=== PATIENT | male | born 1945 | race Caucasian/White ===

== ENCOUNTER → 2021-08-08 | Outpatient (CLI) | payer MEDICARE, BC ==
--- NOTE | 2021-08-08 11:40 | P.PAINPG ---
PQRS Measure Charge Sheet Comment: HISTORY OF PRESENT ILLNESS: 76 yr old male with at side as a referral from Dr. Black presents today with severe and chronic lower back pain secondary to spinal stenosis, DDD and facet arthropathy for evaluation. Patient states his back pain is 5 out of 10 in intensity, sore, achy in the mid to lower aspects of his lumbar spine with radiation of pain toward the right hip. Patient is scheduled to have hip replacement surgery in the upcoming months. Pain is provoked with weightbearing activity. Pain is relieved with medications (baclofen, Mobic), topicals, alternating ice and heat which does not help, physical therapy completed in February 2021, use of a wheelchair and walker for ambulation, sitting, repositioning and rest. PMH: OA, HTN, Hyperlipidemia, Seizure Disorder, MDD PSH: Tonsillectomy, Hernia Repair SH: negative x 3. and lives with spouse FH: Non contributory All: NKDA Meds: See list REVIEW OF ORGAN SYSTEMS: CONSTITUTIONAL: No fevers or chills. No recent weight loss. HEENT: No visual acuity loss, eye pain, difficulties with hearing. No nosebleeds. No difficulty swallowing. RESPIRATORY: Denies any troubles with breathing or dyspnea on exertion. CARDIOVASCULAR: Denies any chest pain, palpitations, or recent heart attacks. GASTROINTESTINAL: Denies fatty food intolerance. Has change in bowel habits and gas bloat. GENITOURINARY: Denies any blood in urine. Has increased urinary frequency. NEUROLOGICAL: + numbness and tingling along the distal extremities. No seizure disorders or headaches. MUSCULOSKELETAL: + back pain SKIN: No skin cancer. No rash. PSYCHIATRIC: Denies current depression or suicidal thoughts. ENDOCRINE: Denies current thyroid disorders. Denies any blood sugar glucose intolerance. HEME/LYMPHATIC: Denies any lumps and bumps around the neck. History of deep venous thrombosis. ALLERGY/IMMUNOLOGY: No immunoglobulin therapy. No immune deficiencies. BREAST: Denies current breast lumps, pain or nipple discharge. Physical Examinations : Constitutional : Cooperative , not in acute distress . HEENT: Neck supple. No Lymphadenopathy. Normal thyroid size . Eyes no ptosis , no icterus, no photophobia . Hearing intact. Normal oropharynx. No Thrush. Respiratory : Chest clear to auscultations bilaterally. No wheezing. No rhonchi. Cardiovascular : Regular rate and rhythm , S1 / S2. No S3 . No S4. Gastrointestinal : Abdomen soft. No tenderness. Bowel sounds x 4. No organomegaly . Genitourinary : Deferred. Neurologic : Cranial nerve II to XII intact. No focal neurological deficits. Psychiatric : alert & oriented x 3. Matching mood & appropriate affect. Judgment & insight intact. Lymphatic No Lymphadenopathy. Musculoskeletal : Cervical Spine Motor strength in the deltoid and biceps: Normal right side. Normal Left side Motor strength biceps and the wrist ext ensors: Normal right side . Normal left side Motor strength in the triceps muscle: Normal right side. Normal left side Deep tendon reflexes: Normal at the biceps. Normal at Brachioradialis. Normal at triceps Cervical facet loading test: positive bilaterally Spurling test: positive bilaterally Neck distraction test: positive bilaterally Suzy sign: positive bilaterally Lumbar spine Motor strength lower extremities ,thigh and legs 5/5 Right side , 5/5 Left side Deep tendon reflexes : Normal Knee Jerk. Normal Ankle Jerk Vertebral body tenderness over L1, L2 Lumbar facet Loading Test: positive Right / positive Left Range of motion of the lumbar spine Flexion 30 degrees, extension 10 degrees Straight Leg Raise test: Left/ Right positive at degree Dylan test: positive right / positive left. Severe tenderness over the Sacroiliac joint on the Right / Left sides Gaenslen test: positive bilaterally Seated flexion test: positive on the R Sacral spine : Severe tenderness over the Sacroiliac joint: right side / left side Range of motion: Flexion of the lumbar spine <60 degrees Range of motion: Extension of the lumbar spine <20 degrees Gaenslen's Test positive Maximiliano's Test positive Dylan test: positive right side / left side Thigh Thrust Test Sacral Thrust Test Imaging: MRI without contrast of the lumbar spine from 12/25/20 reviewed Assessment/ Plan : Lumbar DDD, lumbar stenosis, lumbar facet arthropathy Recommendation of LESI L1-L2. May need a series of injections, up to 3 within a 6 month timeframe, for optimal pain relief. Risks, benefits of procedure discussed and patient verbalized understanding. Denies medical history of diab etes. Admits to Plavix and aspirin 81 mg use. Protocol for discontinuation/continuation of medications pancho procedure discussed. All questions answered. I have spent greater than 50 minutes on patient care today. Dr Ramos was available by phone for the evaluation of this patient. The time was used to review the medical records including relevant urine studies and Prescription history (MAPs), review of the available imaging, evaluation and examination of the patient, coordination of care with the medical staff and if applicable referring physicians, as well as creation of the medical record PQRS Narrative: Pain Intensity [Lower Back] 7 Scale Used Numeric (1 - 10) Hx Alcohol Use (MH) No Home Medications: Ambulatory Orders ARIPiprazole [Abilify] 5 mg PO DAILY 08/06/21 Atorvastatin [Lipitor] 40 mg PO HS 08/06/21 Baclofen 10 mg PO TID 08/06/21 Clopidogrel [Plavix] 75 mg PO HS 08/06/21 FLUoxetine HCL [PROzac] 20 mg PO BID 08/06/21 Lisinopril-Hctz 20-25 mg [Zestoretic 20-25] 1 tab PO DAILY 08/06/21 Meloxicam [Mobic] 15 mg PO HS 08/06/21 busPIRone HCL 15 mg PO BID 08/06/21 levETIRAcetam [Keppra] 750 mg PO Q12HR 08/06/21 Controlled Substance Measures - Controlled Substance Measures Is patient prescribed a controlled substance at discharge?: No
[2021-08-08 12:47] VITALS: BP 102/68; PULSE 84; RESP 18; TEMP 98.1
== END ==
LOC: PNWHC3 10:41
PROVIDERS: ATTEND Specialist
DX: M51.36 Other intervertebral disc degeneration, lumbar region (principal); M51.26 Other intervertebral disc displacement, lumbar region; M48.062 Spinal stenosis, lumbar region with neurogenic claudication; M47.816 Spondylosis without myelopathy or radiculopathy, lumbar region; M19.90 Unspecified osteoarthritis, unspecified site; I10 Essential (primary) hypertension; E78.5 Hyperlipidemia, unspecified; G40.909 Epilepsy, unspecified, not intractable, without status epilepticus
CPT/HCPCS: 99211

== ENCOUNTER 2021-12-04 09:18 | Observation (INO) | payer MEDICARE, BC ==
[2021-12-04] MEDS ORDERED: SODIUM CHLORIDE 0.9% 1,000 ML IV STA ×2 (09:45)
--- NOTE | 2021-12-04 09:56 | ED ---
General Adult HPI - General Chief complaint: Recheck/Abnormal Lab/Rx Stated complaint: hypotension Time Seen by Provider: 12/04/21 09:34 Source: patient, family, RN notes reviewed Mode of arrival: wheelchair Limitations: no limitations - History of Present Illness Initial comments: 76-year-old male with multiple medical problems presenting for evaluation of hypotension. Patient was scheduled for right hip replacement today. He was in preop and noted to have a low blood pressure. He states that he was nothing by mouth since 11 PM last night. He had taken his oral antihypertensive medications this morning around 4 AM which included metoprolol, lisinopril, and hydrochlorothiazide. Patient himself has no complaints. Patient had previous CVA but is able to answer questions. He does not eat anything by mouth but has a PEG tube for feeding. No chest pain. No abdominal pain. No vomiting or diarrhea. No fever. - Related Data Home Medications Medication Instructions Recorded Confirmed ARIPiprazole [Abilify] 5 mg PEG/G-TUBE DAILY 08/06/21 12/04/21 Atorvastatin [Lipitor] 40 mg PEG/G-TUBE HS 08/06/21 12/04/21 Baclofen 10 mg PEG/G-TUBE Q8H PRN 08/06/21 11/29/21 Clopidogrel [Plavix] 75 mg PEG/G-TUBE HS 08/06/21 11/29/21 FLUoxetine HCL [PROzac] 20 mg PEG/G-TUBE BID 08/06/21 12/04/21 Lisinopril-Hctz 20-25 mg 1 tab PEG/G-TUBE DAILY 08/06/21 12/04/21 [Zestoretic 20-25] Meloxicam [Mobic] 15 mg PEG/G-TUBE DAILY 08/06/21 11/29/21 busPIRone HCL 15 mg PEG/G-TUBE BID 08/06/21 12/04/21 Acetaminophen [Acetaminophen Oral 20 ml PEG/G-TUBE Q4H PRN 10/04/21 11/29/21 Soln] Aspirin 81 mg PEG/G-TUBE DAILY 10/04/21 11/29/21 Carbidopa-Levodopa 25-100 mg 1 each PEG/G-TUBE QID 10/04/21 12/04/21 [Sinemet 25-100] Diclofenac Sodium Gel [Voltaren 2 gm TOPICAL TID PRN 10/04/21 11/29/21 Gel] Docusate Oral Soln [Colace Oral 10 ml PEG/G-TUBE DIRECTED PRN 10/04/21 12/04/21 Soln] Doxazosin [Cardura] 2 mg PEG/G-TUBE DAILY 10/04/21 12/04/21 Famotidine [Pepcid] 20 mg PEG/G-TUBE DAILY 10/04/21 12/04/21 Loratadine [Claritin] 10 mg PEG/G-TUBE DAILY 10/04/21 12/04/21 Magnesium Hydroxide [Milk of 30 ml PEG/G-TUBE Q48H PRN 10/04/21 11/29/21 Magnesia] Metoclopramide [Reglan] 5 mg PEG/G-TUBE QID 10/04/21 12/04/21 Ondansetron [Zofran] 4 mg PEG/G-TUBE Q6H PRN 10/04/21 11/29/21 Oxybutynin Chloride 5 mg PEG/G-TUBE BID 10/04/21 12/04/21 levETIRAcetam [Keppra Oral 7.5 ml PEG/G-TUBE BID 10/04/21 12/04/21 Solution] Metoprolol Tartrate 25 mg PO BID 11/29/21 12/04/21 Saliva Stimulant Comb. No.3 1 spray MUCOUS MEM TID PRN 11/29/21 12/04/21 [Biotene Moisturizing Mouth] bisacodyL [Dulcolax] 10 mg RECTAL Q72H PRN 11/29/21 11/29/21 Allergies Allergy/AdvReac Type Severity Reaction Status Date / Time No Known Allergies Allergy Verified 12/04/21 11:04 Review of Systems ROS Statement: Those systems with pertinent positive or pertinent negative responses have been documented in the HPI. ROS Other: All systems not noted in ROS Statement are negative. Past Medical History Past Medical History: CVA/TIA, Hyperlipidemia, Hypertension, Prostate Disorder, Sleep Apnea/CPAP/BIPAP Additional Past Medical History / Comment(s): enlarged prostate. 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 parkinsons. stroke 05/15 after hernia surgery, peg tube for feedings and meds. swallowing issues nothing by mouth. uses wheelchair pivots with one assist ( [facility]) no skin issues per [facility] History of Any Multi-Drug Resistant Organisms: None Reported Past Surgical History: Hernia Repair, Tonsillectomy Additional Past Surgical History / Comment(s): 05/15 rt inquinal hernia repair Past Anesthesia/Blood Transfusion Reactions: No Reported Reaction Additional Past Anesthesia/Blood Transfusion Reaction / Comment(s): no blood hx Past Psychological History: Depression Smoking Status: Never smoker Past Alcohol Use History: None Reported Past Drug Use History: None Reported - Past Family History Father Family Medical History: Coronary Artery Disease (CAD) Mother Family Medical History: No Reported History General Exam Limitations: no limitations General appearance: alert, in no apparent distress Head exam: Present: atraumatic, normocephalic Eye exam: Present: normal appearance, PERRL ENT exam: Present: mucous membranes dry Neck exam: Present: normal inspection. Absent: tenderness, meningismus Respiratory exam: Present: normal lung sounds bilaterally. Absent: respiratory distress, wheezes Cardiovascular Exam: Present: regular rate, normal rhythm GI/Abdominal exam: Present: soft, other (PEG tube). Absent: distended, tenderness Extremities exam: Present: normal inspection, normal capillary refill Neurological exam: Present: alert, oriented X3 Psychiatric exam: Present: normal affect, normal mood Skin exam: Present: warm, dry, intact Course Vital Signs 12/04/21 12/04/21 12/04/21 09:26 09:34 10:00 Temperature 97.5 F L Pulse Rate 57 L 58 L 73 Respiratory 15 15 16 Rate Blood Pressure 99/47 84/39 94/49 O2 Sat by Pulse 99 99 100 Oximetry 12/04/21 10:30 Temperature Pulse Rate 59 L Respiratory 15 Rate Blood Pressure 98/48 O2 Sat by Pulse 100 Oximetry EKG Findings - EKG Comments: EKG Findings:: EKG: Sinus bradycardia rate of 58, DE interval 178, QRS duration 81, QTC 414, no ST segment changes. Medical Decision Making - Medical Decision Making 76-year-old male presenting from preop for evaluation of hypotension. Patient does not have any complaints. He did take his antihypertensive medication this morning. No fever. No abdominal pain. No vomiting or diarrhea. No chest pain. X-ray clear, EKG sinus. He has a mild leukocytosis of 12.7, mild lactic acid 2.5. He does have signs of urinary tract infection. He's given IV fluids and IV antibiotics. Urine culture is pending. He will be admitted to internal medicine with orthopedics on consult. - Lab Data Result diagrams: 12/04/21 10:07 12/04/21 10:07 Lab Results 12/04/21 12/04/21 12/04/21 Range/Units 10:07 10:07 10:07 WBC 12.7 H (3.8-10.6) k/uL RBC 3.83 L (4.30-5.90) m/uL Hgb 12.0 L (13.0-17.5) gm/dL Hct 35.8 L (39.0-53.0) % MCV 93.7 (80.0-100.0) fL MCH 31.3 (25.0-35.0) pg MCHC 33.4 (31.0-37.0) g/dL RDW 12.8 (11.5-15.5) % Plt Count 272 (150-450) k/uL MPV 11.0 Neutrophils % 77 % Lymphocytes % 10 % Monocytes % 7 % Eosinophils % 5 % Basophils % 1 % Neutrophils # 9.7 H (1.3-7.7) k/uL Lymphocytes # 1.2 (1.0-4.8) k/uL Monocytes # 0.8 (0-1.0) k/uL Eosinophils # 0.6 (0-0.7) k/uL Basophils # 0.1 (0-0.2) k/uL PT 10.3 (9.0-12.0) sec INR 0.9 (<1.2) APTT 21.7 L (22.0-30.0) sec Sodium (137-145) mmol/L Potassium (3.5-5.1) mmol/L Chloride (98-107) mmol/L Carbon Dioxide (22-30) mmol/L Anion Gap mmol/L BUN (9-20) mg/dL Creatinine (0.66-1.25) mg/dL Est GFR (CKD-EPI)AfAm (>60 ml/min/1.73 sqM) Est GFR (CKD-EPI)NonAf (>60 ml/min/1.73 sqM) Glucose (74-99) mg/dL Plasma Lactic Acid Kvng (0.7-2.0) mmol/L Calcium (8.4-10.2) mg/dL Magnesium (1.6-2.3) mg/dL Total Bilirubin (0.2-1.3) mg/dL AST (17-59) U/L ALT (4-49) U/L Alkaline Phosphatase (38-126) U/L Total Protein (6.3-8.2) g/dL Albumin (3.5-5.0) g/dL Urine Color Yellow Urine Appearance Cloudy (Clear) Urine pH 7.0 (5.0-8.0) Ur Specific [place] 1.024 (1.001-1.035) Urine Protein 1+ H (Negative) Urine Glucose (UA) Negative (Negative) Urine Ketones Trace H (Negative) Urine Blood Negative (Negative) Urine Nitrite Negative (Negative) Urine Bilirubin Negative (Negative) Urine Urobilinogen 2.0 (<2.0) mg/dL Ur Leukocyte Esterase Large H (Negative) Urine RBC 8 H (0-5) /hpf Urine WBC 131 H (0-5) /hpf Urine WBC Clumps Many H (None) /hpf Amorphous Sediment Rare H (None) /hpf Urine Bacteria Few H (None) /hpf Urine Mucus Many H (None) /hpf 12/04/21 12/04/21 Range/Units 10:07 10:07 WBC (3.8-10.6) k/uL RBC (4.30-5.90) m/uL Hgb (13.0-17.5) gm/dL Hct (39.0-53.0) % MCV (80.0-100.0) fL MCH (25.0-35.0) pg MCHC (31.0-37.0) g/dL RDW (11.5-15.5) % Plt Count (150-450) k/uL MPV Neutrophils % % Lymphocytes % % Monocytes % % Eosinophils % % Basophils % % Neutrophils # (1.3-7.7) k/uL Lymphocytes # (1.0-4.8) k/uL Monocytes # (0-1.0) k/uL Eosinophils # (0-0.7) k/uL Basophils # (0-0.2) k/uL PT (9.0-12.0) sec INR (<1.2) APTT (22.0-30.0) sec Sodium 134 L (137-145) mmol/L Potassium 4.6 (3.5-5.1) mmol/L Chloride 98 (98-107) mmol/L Carbon Dioxide 27 (22-30) mmol/L Anion Gap 9 mmol/L BUN 37 H (9-20) mg/dL Creatinine 0.94 (0.66-1.25) mg/dL Est GFR (CKD-EPI)AfAm 90 (>60 ml/min/1.73 sqM) Est GFR (CKD-EPI)NonAf 78 (>60 ml/min/1.73 sqM) Glucose 89 (74-99) mg/dL Plasma Lactic Acid Kvng 2.5 H* (0.7-2.0) mmol/L Calcium 9.4 (8.4-10.2) mg/dL Magnesium 2.2 (1.6-2.3) mg/dL Total Bilirubin 0.6 (0.2-1.3) mg/dL AST 19 (17-59) U/L ALT 9 (4-49) U/L Alkaline Phosphatase 91 (38-126) U/L Total Protein 5.9 L (6.3-8.2) g/dL Albumin 3.4 L (3.5-5.0) g/dL Urine Color Urine Appearance (Clear) Urine pH (5.0-8.0) Ur Specific [place] (1.001-1.035) Urine Protein (Negative) Urine Glucose (UA) (Negative) Urine Ketones (Negative) Urine Blood (Negative) Urine Nitrite (Negative) Urine Bilirubin (Negative) Urine Urobilinogen (<2.0) mg/dL Ur Leukocyte Esterase (Negative) Urine RBC (0-5) /hpf Urine WBC (0-5) /hpf Urine WBC Clumps (None) /hpf Amorphous Sediment (None) /hpf Urine Bacteria (None) /hpf Urine Mucus (None) /hpf Disposition Clinical Impression: UTI (urinary tract infection), Hypotension Disposition: ADMITTED IP TO THIS HOSP Condition: Stable Is patient prescribed a controlled substance at d/c from ED?: No Referrals: Brennan Cuellar MD [Primary Care Provider] - 1-2 days Time of Disposition: 11:15
[2021-12-04 10:15] LABS: Basophils # (A) 0.1 k/uL (0-0.2); Basophils % (A) 1 %; Eosinophils # (A) 0.6 k/uL (0-0.7); Eosinophils % (A) 5 %; HCT 35.8 % (39.0-53.0); Lymphocytes # (A) 1.2 k/uL (1.0-4.8); Lymphocytes % (A) 10 %; MCH 31.3 pg (25.0-35.0); MCHC 33.4 g/dL (31.0-37.0); MCV 93.7 fL (80.0-100.0); Monocytes # (A) 0.8 k/uL (0-1.0); Monocytes % (A) 7 %; Neutrophils # (A) 9.7 k/uL (1.3-7.7); Neutrophils % (A) 77 %; Platelet Count 272 k/uL (150-450); RBC 3.83 m/uL (4.30-5.90); RDW 12.8 % (11.5-15.5); WBC 12.7 k/uL (3.8-10.6)
[2021-12-04 10:28] LABS: Amorphous Sediment,Urine Rare /hpf; Appearance,Urine Cloudy (Clear); Bacteria,Urine Few /hpf; Bilirubin,Urine Negative (Negative); Blood,Urine Negative (Negative); Color,Urine Yellow; Glucose,Urine (UA) Negative (Negative); Ketones,Urine Trace (Negative); Leukocyte Esterase,Urine Large (Negative); Mucus,Urine Many /hpf; Nitrite,Urine Negative (Negative); Protein,Urine 1+ (Negative); RBC,Urine 8 /hpf (0-5); Specific Gravity,Urine 1.024 (1.001-1.035); WBC,Urine 131 /hpf (0-5)
[2021-12-04 10:30] LABS: Albumin 3.4 g/dL (3.5-5.0); Calcium 9.4 mg/dL (8.4-10.2); Magnesium 2.2 mg/dL (1.6-2.3); Potassium 4.6 mmol/L (3.5-5.1); Total Bilirubin 0.6 mg/dL (0.2-1.3); Total Protein 5.9 g/dL (6.3-8.2)
--- NOTE | 2021-12-04 10:46 | XR ---
EXAMINATION TYPE: XR chest 2V DATE OF EXAM: 12/04/2021 COMPARISON: NONE HISTORY: Hypotension TECHNIQUE: Frontal and lateral views of the chest are obtained. FINDINGS: There is no focal air space opacity, pleural effusion, or pneumothorax seen. The cardiac silhouette size is within normal limits. There are overlying leads. There may be a spinal curvature, there is thoracic spondylosis. There are overlying artifacts. The osseous structures are intact. IMPRESSION: No acute cardiopulmonary process.
[2021-12-04 10:51] LABS: INR 0.9 (<1.2); Prothrombin Time 10.3 sec (9.0-12.0)
[2021-12-04] MEDS ORDERED: cefTRIAXone IN SWFI 1,000 MG/10 ML SYRINGE IVP STA (11:04)
[2021-12-04 11:09] LABS: Partial Thromboplastin Time 21.7 sec (22.0-30.0)
[2021-12-04] MEDS ORDERED: NALOXONE 0.4 MG/ML 1 ML VIAL IV PRN (11:12)
[2021-12-04] MEDS ORDERED: bisacodyL 10 MG SUPP RECTAL PRN (19:43)
[2021-12-04] MEDS ORDERED: ACETAMINOPHEN ORAL SUSP (PEDS) 3,840 MG/120 ML BOTTLE PEG/G-TUBE PRN (19:43)
[2021-12-04] MEDS ORDERED: MAGNESIUM HYDROXIDE 2,400 MG/10 ML CUP PEG/G-TUBE PRN (19:43)
[2021-12-04] MEDS ORDERED: [UNRECOGNIZED DRUG - REMARK] MUCOUS MEM PRN (19:43)
[2021-12-04] MEDS ORDERED: ONDANSETRON 4 MG TAB PEG/G-TUBE PRN (19:43)
[2021-12-04] MEDS ORDERED: BACLOFEN 10 MG TAB PEG/G-TUBE PRN (19:43)
[2021-12-04] MEDS: busPIRone HCl 5 MG TAB PEG/G-TUBE SCH (20:17)
[2021-12-04] MEDS: METOCLOPRAMIDE 5 MG TAB PEG/G-TUBE SCH (20:17)
[2021-12-04] MEDS: CARBIDOPA-LEVODOPA 25-100 MG 1 EACH TAB PEG/G-TUBE SCH (20:17)
[2021-12-04] MEDS: OXYBUTYNIN CHLORIDE 5 MG TAB PEG/G-TUBE SCH (20:17)
[2021-12-04] MEDS: FLUoxetine HCL 20 MG CAP PEG/G-TUBE SCH (20:17)
[2021-12-04] MEDS: METOPROLOL TARTRATE 25 MG TAB PEG/G-TUBE SCH (20:17)
[2021-12-04] MEDS: DOCUSATE ORAL SOLN 100 MG/10 ML CUP PEG/G-TUBE SCH (20:17)
[2021-12-04] MEDS: ATORVASTATIN 40 MG TAB PEG/G-TUBE SCH (20:17)
[2021-12-04] MEDS: levETIRAcetam ORAL SOLN 500 MG/5 ML CUP PEG/G-TUBE SCH (20:17)
--- NOTE | 2021-12-04 21:07 | P.HPIM ---
History of Present Illness H&P Date: 12/04/21 Chief Complaint: Hypotension Patient is a 76-year-old male with a known history of hypertension, hypertension, history of CVA, Parkinson's disease, medical debility currently [facility] resident and obstructive sleep apnea and other medical problems was initially was admitted to the hospital for elective hip surgery. While patient was in the preop unit he was noted to be hypotensive. Patient was nothing by mouth since 11 PM last night. Patient did take his oral antihypertensive medications this morning around 4 AM which includes metoprolol, lisinopril and hydrochlorothiazide. Otherwise patient denied any complaints of dizziness or lightheadedness. No fever no chills. No abdominal pain. No dysuria or hematuria. No cough or sputum production. Patient does have PEG tube feeding which he has been tolerating functioning well. No nausea vomiting or diarrhea. No abdominal pain. Laboratory data showed WBC 12.7 hemoglobin 12.0 and platelets 272 Sodium 134 potassium 4.6 chloride 98 bicarb is 27 BUN 37 and creatinine 0.94 Lactic acid 2.5 Urinalysis showed cloudy with 1+ protein and trace ketones large leukocyte esterase with elevated RBCs and WBCs Review of Systems Constitutional: Patient denies any fever or chills . No generalized weakness or weight loss. Abdomen: Patient denied nausea vomiting and diarrhea and abdominal pain. Cardiovascular: Patient denies any chest pain or short of breath no palpit ations. Respiratory: patient denied any cough is from production. No shortness of breath Neurologic: Patient denied any numbness or tingling headache. Musculoskeletal: Patient denies any complaints of joint swelling or deformity. Skin: Negative Psychiatric: Negative Endocrine: No heat or cold intolerance. No recent weight gain. Genitourinary: No dysuria or hematuria. All other 14 point ROS negative except the above Past Medical History Past Medical History: CVA/TIA, Hyperlipidemia, Hypertension, Prostate Disorder, Sleep Apnea/CPAP/BIPAP Additional Past Medical History / Comment(s): enlarged prostate. 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 parkinsons. stroke 05/15 after hernia surgery, peg tube for feedings and meds. swallowing issues nothing by mouth. uses wheelchair pivots with one assist ( [facility]) no skin issues per [facility] History of Any Multi-Drug Resistant Organisms: None Reported Past Surgical History: Hernia Repair, Tonsillectomy Additional Past Surgical History / Comment(s): 05/15 rt inquinal hernia repair Past Anesthesia/Blood Transfusion Reactions: No Reported Reaction Additional Past Anesthesia/Blood Transfusion Reaction / Comment(s): no blood hx Past Psychological History: Depression Smoking Status: Never smoker Past Alcohol Use History: None Reported Past Drug Use History: None Reported - Past Family History Father Family Medical History: Coronary Artery Disease (CAD) Mother Family Medical History: No Reported History Medications and Allergies Home Medications Medication Instructions Recorded Confirmed Type ARIPiprazole [Abilify] 5 mg PEG/G-TUBE DAILY 08/06/21 12/04/21 History Atorvastatin [Lipitor] 40 mg PEG/G-TUBE HS 08/06/21 12/04/21 History Baclofen 10 mg PEG/G-TUBE Q8H PRN 08/06/21 12/04/21 History Clopidogrel [Plavix] 75 mg PEG/G-TUBE DIRECTED 08/06/21 12/04/21 History FLUoxetine HCL [PROzac] 20 mg PEG/G-TUBE BID 08/06/21 12/04/21 History Meloxicam [Mobic] 15 mg PEG/G-TUBE DIRECTED 08/06/21 12/04/21 History busPIRone HCL 15 mg PEG/G-TUBE BID 08/06/21 12/04/21 History Acetaminophen [Acetaminophen Oral 20 ml PEG/G-TUBE Q4H PRN 10/04/21 12/04/21 History Soln] Aspirin 81 mg PEG/G-TUBE DIRECTED 10/04/21 12/04/21 History Carbidopa-Levodopa 25-100 mg 1 tab PEG/G-TUBE QID 10/04/21 12/04/21 History [Sinemet 25-100] Docusate Oral Soln [Colace Oral 10 ml PEG/G-TUBE HS 10/04/21 12/04/21 History Soln] Doxazosin [Cardura] 2 mg PEG/G-TUBE DAILY 10/04/21 12/04/21 History Famotidine [Pepcid] 20 mg PEG/G-TUBE DAILY 10/04/21 12/04/21 History Loratadine [Claritin] 10 mg PEG/G-TUBE DAILY 10/04/21 12/04/21 History Magnesium Hydroxide [Milk of 30 ml PEG/G-TUBE Q48H PRN 10/04/21 12/04/21 History Magnesia] Metoclopramide [Reglan] 5 mg PEG/G-TUBE QID 10/04/21 12/04/21 History Ondansetron [Zofran] 4 mg PEG/G-TUBE Q6H PRN 10/04/21 12/04/21 History Oxybutynin Chloride 5 mg PEG/G-TUBE BID 10/04/21 12/04/21 History levETIRAcetam [Keppra Oral 7.5 ml PEG/G-TUBE BID 10/04/21 12/04/21 History Solution] Metoprolol Tartrate 25 mg PEG/G-TUBE BID 11/29/21 12/04/21 History Saliva Stimulant Comb. No.3 1 spray MUCOUS MEM TID PRN 11/29/21 12/04/21 History [Biotene Moisturizing Mouth] bisacodyL [Dulcolax] 10 mg RECTAL Q72H PRN 11/29/21 12/04/21 History Lisinopril-Hctz 10-12.5 mg 1 tab PEG/G-TUBE DAILY 12/04/21 12/04/21 History [Zestoretic 10-12.5] Allergies Allergy/AdvReac Type Severity Reaction Status Date / Time No Known Allergies Allergy Verified 12/04/21 11:04 Physical Exam Vitals: Vital Signs Temp Pulse Pulse Resp BP BP Pulse Ox 12/04/21 18:12 98.5 F 85 16 106/69 96 12/04/21 16:52 76 16 97/48 100 12/04/21 14:30 78 16 99/61 96 12/04/21 14:00 75 16 85/59 98 12/04/21 13:30 55 L 16 83/44 98 12/04/21 13:00 56 L 16 95/60 99 12/04/21 12:00 58 L 16 94/54 99 12/04/21 11:46 60 18 94/54 99 12/04/21 11:00 81 15 103/60 99 12/04/21 10:30 59 L 15 98/48 100 12/04/21 10:00 73 16 94/49 100 12/04/21 09:34 58 L 15 84/39 99 12/04/21 09:26 97.5 F L 57 L 15 99/47 99 Intake and Output 12/04/21 12/04/21 12/04/21 06:59 14:59 22:59 Output Total 600 Balance -600 Output: Urine 600 Other: Weight 79.832 kg PHYSICAL EXAMINATION: Patient is lying in the bed comfortably, no acute distress, awake alert and jon ented.. HEENT: Normocephalic. Neck is supple. Pupils reactive. Nostrils clear. Oral cavity is moist. Neck reveals no JVD, carotid bruits, or thyromegaly. CHEST EXAMINATION: Trachea is central. Symmetrical expansion. Bibasilar diminished sounds. Lung menendez clear to auscultation and percussion. CARDIAC: Normal S1, S2 with no gallops. No murmurs ABDOMEN: Soft. Bowel sounds normal. No organomegaly. No abdominal bruits. Extremities: reveal no edema. No clubbing or cyanosis Neurologically awake, alert, oriented x3 . Able to move her extremities while in bed. Skin: No rash or skin lesions. Psychiatric: Coperative. Nonsuicidal Musculoskeletal: No joint swelling or deformity. Normal range of motion. Results CBC & Chem 7: 12/04/21 10:07 12/04/21 10:07 Labs: Abnormal Lab Results - Last 24 Hours (Table) 12/04/21 12/04/21 12/04/21 Range/Units 10:07 10:07 10:07 WBC 12.7 H (3.8-10.6) k/uL RBC 3.83 L (4.30-5.90) m/uL Hgb 12.0 L (13.0-17.5) gm/dL Hct 35.8 L (39.0-53.0) % Neutrophils # 9.7 H (1.3-7.7) k/uL APTT 21.7 L (22.0-30.0) sec Sodium (137-145) mmol/L BUN (9-20) mg/dL Plasma Lactic Acid Kvng (0.7-2.0) mmol/L Total Protein (6.3-8.2) g/dL Albumin (3.5-5.0) g/dL Urine Protein 1+ H (Negative) Urine Ketones Trace H (Negative) Ur Leukocyte Esterase Large H (Negative) Urine RBC 8 H (0-5) /hpf Urine WBC 131 H (0-5) /hpf Urine WBC Clumps Many H (None) /hpf Amorphous Sediment Rare H (None) /hpf Urine Bacteria Few H (None) /hpf Urine Mucus Many H (None) /hpf 12/04/21 12/04/21 Range/Units 10:07 10:07 WBC (3.8-10.6) k/uL RBC (4.30-5.90) m/uL Hgb (13.0-17.5) gm/dL Hct (39.0-53.0) % Neutrophils # (1.3-7.7) k/uL APTT (22.0-30.0) sec Sodium 134 L (137-145) mmol/L BUN 37 H (9-20) mg/dL Plasma Lactic Acid Kvng 2.5 H* (0.7-2.0) mmol/L Total Protein 5.9 L (6.3-8.2) g/dL Albumin 3.4 L (3.5-5.0) g/dL Urine Protein (Negative) Urine Ketones (Negative) Ur Leukocyte Esterase (Negative) Urine RBC (0-5) /hpf Urine WBC (0-5) /hpf Urine WBC Clumps (None) /hpf Amorphous Sediment (None) /hpf Urine Bacteria (None) /hpf Urine Mucus (None) /hpf Microbiology - Last 24 Hours (Table) 12/04/21 10:07 Urine Culture - Preliminary Urine,Voided Thrombosis Risk Factor Assmnt - DVT/VTE Prophylaxis DVT/VTE Prophylaxis: Pharmacologic Prophylaxis ordered Assessment and Plan Assessment: Acute urinary tract infection Hypotension secondary to infection as well as volume depletion, blood pressure medications Hypertension Hyperlipidemia History of CVA/TIA Parkinson's disease [facility] resident Obstructive sleep apnea Depression DVT prophylaxis Plan: The patient be continued on IV hydration with normal saline. Blood pressure medications hydrochlorothiazide, lisinopril and metoprolol on hold. Continue with antibiotics the form of ceftriaxone and follow-up urine culture report. Continue the home medications and follow closely. Continue to hold aspirin and Plavix. Orthopedic surgery was consulted for possible hip replacement during hospital stay. Discussed with the family in detail. Continue to follow closely. Time with Patient: Greater than 30
[2021-12-05] MEDS: busPIRone HCl 5 MG TAB PEG/G-TUBE SCH ×2 (07:59→21:51)
[2021-12-05] MEDS: levETIRAcetam ORAL SOLN 500 MG/5 ML CUP PEG/G-TUBE SCH ×2 (08:00→21:52)
[2021-12-05] MEDS: OXYBUTYNIN CHLORIDE 5 MG TAB PEG/G-TUBE SCH ×2 (08:00→21:53)
[2021-12-05] MEDS: CARBIDOPA-LEVODOPA 25-100 MG 1 EACH TAB PEG/G-TUBE SCH ×4 (08:00→21:53)
[2021-12-05] MEDS: FAMOTIDINE 20 MG TAB PEG/G-TUBE SCH (08:00)
[2021-12-05] MEDS: ARIPiprazole 5 MG TAB PEG/G-TUBE SCH (08:00)
[2021-12-05] MEDS: METOCLOPRAMIDE 5 MG TAB PEG/G-TUBE SCH ×4 (08:01→21:53)
[2021-12-05] MEDS: FLUoxetine HCL 20 MG CAP PEG/G-TUBE SCH ×2 (08:02→21:51)
[2021-12-05] MEDS: DOXAZOSIN 2 MG TAB PEG/G-TUBE SCH (08:02)
[2021-12-05] MEDS: LORATADINE ORAL SOLN 120 MG/120 ML BOTTLE PEG/G-TUBE SCH (08:03)
[2021-12-05] MEDS: METOPROLOL TARTRATE 25 MG TAB PEG/G-TUBE SCH ×2 (08:03→21:53)
[2021-12-05 11:15] LABS: African American GFR (CKD) 99.2 (60.0-200.0); Anion Gap 8.6 mmol/L (10.00-18.00); BUN/Creat Ratio 28.5 Ratio (12.00-20.00); Blood Urea Nitrogen 22.8 mg/dL (9.0-27.0); Calcium 9.3 mg/dL (8.7-10.3); Carbon Dioxide 25.4 mmol/L (20.0-27.5); Non-African American GFR(CKD) 85.6 (60.0-200.0); Potassium 4.3 mmol/L (3.5-5.5)
[2021-12-05] MEDS: SODIUM CHLORIDE 0.9% 1,000 ML IV SCH (14:40)
[2021-12-05 15:25] LABS: Basophils # (A) 0.09 X 10*3/uL (0.00-0.10); Eosinophils # (A) 1.41 X 10*3/uL (0.04-0.35); Eosinophils % (A) 16.1 %; HCT 35.2 % (39.6-50.0); HGB 11.3 g/dL (13.0-17.0); Immature Grans, Automated 0.3 %; Lymphocytes # (A) 1.72 X 10*3/uL (0.90-5.00); Lymphocytes % (A) 19.7 %; MCHC 32.1 g/dL (32.0-37.0); MCV 96.7 fL (80.0-97.0); Mean Platelet Volume 12.9 fL (9.5-12.2); Monocytes # (A) 0.97 X 10*3/uL (0.20-1.00); Monocytes % (A) 11.1 %; NRBC Per 100 WBC 0 /100 WBCS (0.0-0.0); Neutrophils # (A) 4.52 X 10*3/uL (1.80-7.70); Neutrophils % (A) 51.8 %; Platelet Count 242 X 10*3/uL (140-440); RBC 3.64 X 10*6/uL (4.40-5.60); RDW 12.8 % (11.5-14.5); WBC 8.74 X 10*3/uL (4.50-10.00)
--- NOTE | 2021-12-05 16:32 | P.CNOR ---
History of Present Illness - [facility] Consult date: 12/05/21 History of present illness: This patient is a 76- year old male who was scheduled to undergo an elective right total hip arthroplasty yesterday with Dr. Brush. Patient was found to be hypotensive in the pre-op area, therefore he was sent to the emergency department. Patient was admitted under the care of internal medicine. Patient is examined bedside this afternoon. He states he is having no pain the right hip currently. No voiced complaints. Vital signs stable. Past Medical History Past Medical History: CVA/TIA, Hyperlipidemia, Hypertension, Prostate Disorder, Sleep Apnea/CPAP/BIPAP Additional Past Medical History / Comment(s): enlarged prostate. 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 parkinsons. stroke 05/15 after hernia surgery, peg tube for feedings and meds. swallowing issues nothing by mouth. uses wheelchair pivots with one assist ( [facility]) no skin issues per [facility] History of Any Multi-Drug Resistant Organisms: None Reported Past Surgical History: Hernia Repair, Tonsillectomy Additional Past Surgical History / Comment(s): 05/15 rt inquinal hernia repair Past Anesthesia/Blood Transfusion Reactions: No Reported Reaction Additional Past Anesthesia/Blood Transfusion Reaction / Comm: no blood hx Past Psychological History: Depression Smoking Status: Never smoker Past Alcohol Use History: None Reported Past Drug Use History: None Reported - Past Family History Father Family Medical History: Coronary Artery Disease (CAD) Mother Family Medical History: No Reported History Medications and Allergies Home Medications Medication Instructions Recorded Confirmed Type ARIPiprazole [Abilify] 5 mg PEG/G-TUBE DAILY 08/06/21 12/04/21 History Atorvastatin [Lipitor] 40 mg PEG/G-TUBE HS 08/06/21 12/04/21 History Baclofen 10 mg PEG/G-TUBE Q8H PRN 08/06/21 12/04/21 History Clopidogrel [Plavix] 75 mg PEG/G-TUBE DIRECTED 08/06/21 12/04/21 History FLUoxetine HCL [PROzac] 20 mg PEG/G-TUBE BID 08/06/21 12/04/21 History Meloxicam [Mobic] 15 mg PEG/G-TUBE DIRECTED 08/06/21 12/04/21 History busPIRone HCL 15 mg PEG/G-TUBE BID 08/06/21 12/04/21 History Acetaminophen [Acetaminophen Oral 20 ml PEG/G-TUBE Q4H PRN 10/04/21 12/04/21 History Soln] Aspirin 81 mg PEG/G-TUBE DIRECTED 10/04/21 12/04/21 History Carbidopa-Levodopa 25-100 mg 1 tab PEG/G-TUBE QID 10/04/21 12/04/21 History [Sinemet 25-100] Docusate Oral Soln [Colace Oral 10 ml PEG/G-TUBE HS 10/04/21 12/04/21 History Soln] Doxazosin [Cardura] 2 mg PEG/G-TUBE DAILY 10/04/21 12/04/21 History Famotidine [Pepcid] 20 mg PEG/G-TUBE DAILY 10/04/21 12/04/21 History Loratadine [Claritin] 10 mg PEG/G-TUBE DAILY 10/04/21 12/04/21 History Magnesium Hydroxide [Milk of 30 ml PEG/G-TUBE Q48H PRN 10/04/21 12/04/21 History Magnesia] Metoclopramide [Reglan] 5 mg PEG/G-TUBE QID 10/04/21 12/04/21 History Ondansetron [Zofran] 4 mg PEG/G-TUBE Q6H PRN 10/04/21 12/04/21 History Oxybutynin Chloride 5 mg PEG/G-TUBE BID 10/04/21 12/04/21 History levETIRAcetam [Keppra Oral 7.5 ml PEG/G-TUBE BID 10/04/21 12/04/21 History Solution] Metoprolol Tartrate 25 mg PEG/G-TUBE BID 11/29/21 12/04/21 History Saliva Stimulant Comb. No.3 1 spray MUCOUS MEM TID PRN 11/29/21 12/04/21 History [Biotene Moisturizing Mouth] bisacodyL [Dulcolax] 10 mg RECTAL Q72H PRN 11/29/21 12/04/21 History Lisinopril-Hctz 10-12.5 mg 1 tab PEG/G-TUBE DAILY 12/04/21 12/04/21 History [Zestoretic 10-12.5] Allergies Allergy/AdvReac Type Severity Reaction Status Date / Time No Known Allergies Allergy Verified 12/04/21 11:04 Physical Examination On examination, patient is lying in bed in no apparent distress. He is alert and answered questions appropriately. On inspection of the right hip, no open wounds or lacerations. Mild pain with passive range of motion of the right hip. Right lower extremity warm and well perfused with brisk capillary refill distally. Motor and sensory function is intact of the right lower extremity. Results - Labs Labs: Abnormal Lab Results - Last 24 Hours (Table) 12/05/21 12/05/21 Range/Units 06:18 06:18 RBC 3.64 L (4.40-5.60) X 10*6/uL Hgb 11.3 L (13.0-17.0) g/dL Hct 35.2 L (39.6-50.0) % MPV 12.9 H (9.5-12.2) fL Eosinophils # 1.41 H (0.04-0.35) X 10*3/uL Anion Gap 8.60 L (10.00-18.00) mmol/L BUN/Creatinine Ratio 28.50 H (12.00-20.00) Ratio Microbiology - Last 24 Hours (Table) 12/04/21 10:07 Urine Culture - Final Urine,Voided H & H 12/04/21 12/05/21 Range/Units 10:07 06:18 Hgb 12.0 L 11.3 L (13.0-17.5) gm/dL Hct 35.8 L 35.2 L (39.0-53.0) % Coagulation 12/04/21 Range/Units 10:07 INR 0.9 (<1.2) Result Diagrams: 12/05/21 06:18 12/05/21 06:18 Assessment and Plan Assessment: Right hip arthritis Hypotension Plan: - Patient's elective right total hip arthroplasty has been postponed until he is medically stable. We have no plans for surgical intervention during this hospital stay. Patient may be discharged from orthopedic standpoint. He should follow-up in the office with Dr. Brush following discharge if he would like to re-schedule surgery in the future.
[2021-12-05] MEDS: ATORVASTATIN 40 MG TAB PEG/G-TUBE SCH (21:51)
[2021-12-05] MEDS: DOCUSATE ORAL SOLN 100 MG/10 ML CUP PEG/G-TUBE SCH (21:51)
--- NOTE | 2021-12-05 22:54 | P.PN ---
Subjective Progress Note Date: 12/05/21 Patient is a 76-year-old male with a known history of hypertension, hypertension, history of CVA, Parkinson's disease, medical debility currently senior care resident and obstructive sleep apnea and other medical problems was initially was admitted to the hospital for elective hip surgery. While patient was in the preop unit he was noted to be hypotensive. Patient was nothing by mouth since 11 PM last night. Patient did take his oral antihypertensive medications this morning around 4 AM which includes metoprolol, lisinopril and hydrochlorothiazide. Otherwise patient denied any complaints of dizziness or lightheadedness. No fever no chills. No abdominal pain. No dysuria or hematuria. No cough or sputum production. Patient does have PEG tube feeding which he has been tolerating functioning well. No nausea vomiting or diarrhea. No abdominal pain. Laboratory data showed WBC 12.7 hemoglobin 12.0 and platelets 272 Sodium 134 potassium 4.6 chloride 98 bicarb is 27 BUN 37 and creatinine 0.94 Lactic acid 2.5 Urinalysis showed cloudy with 1+ protein and trace ketones large leukocyte fr[place] ase with elevated RBCs and WBCs 12/05/2021 Patient is currently resting in the bed comfortably. Awake alert and oriented. Patient is bedridden and is senior care resident. Denies any complaints of abdominal pain. No nausea vomiting or diarrhea. Tolerating oral diet. Patient has had been afebrile. No other acute overnight issues. Patient is being continued on antibiotics in the form of ceftriaxone for possible urinary tract infection. Follow-up urine culture reports and on blood pressure is improving with IV hydration. Blood pressure medications on hold. Laboratory data showed WBC came down to 8.7 hemoglobin 11.3 and platelets 242 BUN 22.8 and creatinine 0.8 and lactic acid came down to 1.3. Current medications reviewed. Objective - Vital Signs Vital signs: Vital Signs Temp 97.9 F 12/05/21 20:16 Pulse 84 12/05/21 20:16 Resp 16 12/05/21 20:16 BP 121/69 12/05/21 20:16 Pulse Ox 98 12/05/21 20:16 FiO2 Intake & Output 12/05/21 12/05/21 12/06/21 06:59 18:59 06:59 Intake Total 900 Output Total 1200 Balance 900 -1200 Intake: Intake, IV Titration 900 Amount Sodium Chloride 0.9% 1, 900 000 ml @ 75 mls/hr IV . [id number] STA Rx#:[id number] Output: Urine 1200 Other: Voiding Method Self-Catheterization Indwelling Catheter - Exam PHYSICAL EXAMINATION: Patient is lying in the bed comfortably, no acute distress, awake alert and oriented.. HEENT: Normocephalic. Neck is supple. Pupils reactive. Nostrils clear. Oral cavity is moist. Neck reveals no JVD, carotid bruits, or thyromegaly. CHEST EXAMINATION: Trachea is central. Symmetrical expansion. Bibasilar diminished sounds. Lung menendez clear to auscultation and percussion. CARDIAC: Normal S1, S2 with no gallops. No murmurs ABDOMEN: Soft. Bowel sounds normal. No organomegaly. No abdominal bruits. Extremities: reveal no edema. No clubbing or cyanosis Neurologically awake, alert, oriented x3 . Able to move her extremities while in bed. Skin: No rash or skin lesions. Psychiatric: Coperative. Nonsuicidal Musculoskeletal: No joint swelling or deformity. Normal range of motion. - Labs CBC & Chem 7: 12/05/21 06:18 12/05/21 06:18 Labs: Abnormal Lab Results - Last 24 Hours (Table) 12/05/21 12/05/21 Range/Units 06:18 06:18 RBC 3.64 L (4.40-5.60) X 10*6/uL Hgb 11.3 L (13.0-17.0) g/dL Hct 35.2 L (39.6-50.0) % MPV 12.9 H (9.5-12.2) fL Eosinophils # 1.41 H (0.04-0.35) X 10*3/uL Anion Gap 8.60 L (10.00-18.00) mmol/L BUN/Creatinine Ratio 28.50 H (12.00-20.00) Ratio Microbiology - Last 24 Hours (Table) 12/04/21 10:07 Urine Culture - Final Urine,Voided Assessment and Plan Assessment: Hypotension secondary to infection as well as volume depletion, blood pressure medications Possible Acute urinary tract infection Hypertension Hyperlipidemia History of CVA/TIA Parkinson's disease [facility] resident Obstructive sleep apnea Depression DVT prophylaxis Plan: The patient be continued on IV hydration with normal saline. Blood pressure medications hydrochlorothiazide, lisinopril and metoprolol on hold. Continue with antibiotics the form of ceftriaxone and follow-up final urine culture report. Continue the home medications and follow closely. Continue to hold aspirin and Plavix. Orthopedic surgery is on board. Continue to follow closely. Time with Patient: Greater than 30
[2021-12-06] MEDS: SODIUM CHLORIDE 0.9% 1,000 ML IV SCH ×2 (05:41→17:26)
[2021-12-06] MEDS: FLUoxetine HCL 20 MG CAP PEG/G-TUBE SCH ×2 (08:57→22:15)
[2021-12-06] MEDS: METOPROLOL TARTRATE 25 MG TAB PEG/G-TUBE SCH ×2 (08:57→22:16)
[2021-12-06] MEDS: busPIRone HCl 5 MG TAB PEG/G-TUBE SCH ×2 (08:57→22:15)
[2021-12-06] MEDS: CARBIDOPA-LEVODOPA 25-100 MG 1 EACH TAB PEG/G-TUBE SCH ×4 (08:57→22:16)
[2021-12-06] MEDS: FAMOTIDINE 20 MG TAB PEG/G-TUBE SCH (08:57)
[2021-12-06] MEDS: ARIPiprazole 5 MG TAB PEG/G-TUBE SCH (08:58)
[2021-12-06] MEDS: DOXAZOSIN 2 MG TAB PEG/G-TUBE SCH (08:58)
[2021-12-06] MEDS: OXYBUTYNIN CHLORIDE 5 MG TAB PEG/G-TUBE SCH ×2 (08:58→22:16)
[2021-12-06] MEDS: METOCLOPRAMIDE 5 MG TAB PEG/G-TUBE SCH ×4 (08:58→22:16)
[2021-12-06] MEDS: levETIRAcetam ORAL SOLN 500 MG/5 ML CUP PEG/G-TUBE SCH ×2 (08:58→22:15)
[2021-12-06 09:31] LABS: Basophils # (A) 0.08 X 10*3/uL (0.00-0.10); Eosinophils # (A) 1.18 X 10*3/uL (0.04-0.35); Eosinophils % (A) 14.6 %; HCT 35.3 % (39.6-50.0); HGB 10.9 g/dL (13.0-17.0); Immature Grans, Automated 0.2 %; Lymphocytes # (A) 1.61 X 10*3/uL (0.90-5.00); Lymphocytes % (A) 19.9 %; MCH 30.1 pg (27.0-32.0); MCHC 30.9 g/dL (32.0-37.0); MCV 97.5 fL (80.0-97.0); Mean Platelet Volume 12.9 fL (9.5-12.2); Monocytes # (A) 0.94 X 10*3/uL (0.20-1.00); Monocytes % (A) 11.6 %; NRBC Per 100 WBC 0 /100 WBCS (0.0-0.0); Neutrophils # (A) 4.27 X 10*3/uL (1.80-7.70); Neutrophils % (A) 52.7 %; Platelet Count 244 X 10*3/uL (140-440); RBC 3.62 X 10*6/uL (4.40-5.60); RDW 12.5 % (11.5-14.5)
[2021-12-06] MEDS: LORATADINE ORAL SOLN 120 MG/120 ML BOTTLE PEG/G-TUBE SCH (09:44)
[2021-12-06 10:21] LABS: African American GFR (CKD) 99.5 (60.0-200.0); BUN/Creat Ratio 27.87 Ratio (12.00-20.00); Blood Urea Nitrogen 22.1 mg/dL (9.0-27.0); Calcium 9.3 mg/dL (8.7-10.3); Carbon Dioxide 24.2 mmol/L (20.0-27.5); Chloride 104 mmol/L (96-109); Glucose 56 mg/dL (70-110); Non-African American GFR(CKD) 85.9 (60.0-200.0); Potassium 4.1 mmol/L (3.5-5.5); Sodium 139 mmol/L (135-145)
[2021-12-06 11:49] VITALS: BMI 25.2
[2021-12-06] MEDS: ATORVASTATIN 40 MG TAB PEG/G-TUBE SCH (22:15)
[2021-12-06] MEDS: DOCUSATE ORAL SOLN 100 MG/10 ML CUP PEG/G-TUBE SCH (22:15)
[2021-12-07] MEDS: SODIUM CHLORIDE 0.9% 1,000 ML IV SCH (05:50)
[2021-12-07 09:11] LABS: Basophils # (A) 0.08 X 10*3/uL (0.00-0.10); Basophils % (A) 0.9 %; Eosinophils # (A) 1.43 X 10*3/uL (0.04-0.35); Eosinophils % (A) 15.7 %; HCT 33.6 % (39.6-50.0); Immature Grans, Automated 0.2 %; Lymphocytes # (A) 1.34 X 10*3/uL (0.90-5.00); Lymphocytes % (A) 14.7 %; MCH 30.6 pg (27.0-32.0); MCHC 32.7 g/dL (32.0-37.0); MCV 93.3 fL (80.0-97.0); Mean Platelet Volume 12.6 fL (9.5-12.2); Monocytes # (A) 1.04 X 10*3/uL (0.20-1.00); Monocytes % (A) 11.4 %; NRBC Per 100 WBC 0 /100 WBCS (0.0-0.0); Neutrophils # (A) 5.21 X 10*3/uL (1.80-7.70); Neutrophils % (A) 57.1 %; Platelet Count 251 X 10*3/uL (140-440); RDW 12.3 % (11.5-14.5); WBC 9.12 X 10*3/uL (4.50-10.00)
[2021-12-07] MEDS: levETIRAcetam ORAL SOLN 500 MG/5 ML CUP PEG/G-TUBE SCH (09:19)
[2021-12-07] MEDS: METOCLOPRAMIDE 5 MG TAB PEG/G-TUBE SCH ×2 (09:20→12:50)
[2021-12-07] MEDS: DOXAZOSIN 2 MG TAB PEG/G-TUBE SCH (09:20)
[2021-12-07] MEDS: OXYBUTYNIN CHLORIDE 5 MG TAB PEG/G-TUBE SCH (09:20)
[2021-12-07] MEDS: FAMOTIDINE 20 MG TAB PEG/G-TUBE SCH (09:20)
[2021-12-07] MEDS: CARBIDOPA-LEVODOPA 25-100 MG 1 EACH TAB PEG/G-TUBE SCH ×2 (09:20→12:50)
[2021-12-07] MEDS: FLUoxetine HCL 20 MG CAP PEG/G-TUBE SCH (09:20)
[2021-12-07] MEDS: ARIPiprazole 5 MG TAB PEG/G-TUBE SCH (09:20)
[2021-12-07] MEDS: METOPROLOL TARTRATE 25 MG TAB PEG/G-TUBE SCH (09:20)
[2021-12-07] MEDS: busPIRone HCl 5 MG TAB PEG/G-TUBE SCH (09:20)
[2021-12-07] MEDS: LORATADINE ORAL SOLN 120 MG/120 ML BOTTLE PEG/G-TUBE SCH (09:21)
[2021-12-07 09:52] LABS: African American GFR (CKD) 104.8 (60.0-200.0); Anion Gap 8.7 mmol/L (10.00-18.00); BUN/Creat Ratio 27.29 Ratio (12.00-20.00); Blood Urea Nitrogen 19.1 mg/dL (9.0-27.0); Calcium 8.9 mg/dL (8.7-10.3); Carbon Dioxide 25.3 mmol/L (20.0-27.5); Non-African American GFR(CKD) 90.4 (60.0-200.0); Potassium 3.8 mmol/L (3.5-5.5)
[2021-12-07 11:35] VITALS: BP 127/73; PULSE 69; RESP 18; TEMP 98.7
--- NOTE | 2021-12-07 12:52 | P.DS ---
Providers Date of admission: 12/04/21 11:22 Expected date of discharge: 12/07/21 Attending physician: Hayes Reyes Consults: 12/04/21 11:12 Consult Physician Routine Consulting Provider: Terrance Brush Consult Reason/Comments: Planned hip replacement Do you want consulting provider notified?: Yes Primary care physician: Brennan Cuellar Hospital Course: Final diagnosis Hypotension secondary to infection as well as volume depletion, blood pressure medications Possible Acute urinary tract infection, present on admission, cultures were negative Hypertension Hyperlipidemia History of CVA/TIA Parkinson's disease jail resident Obstructive sleep apnea Depression DVT prophylaxis No code Discharge disposition Patient is being discharged in a stable condition with guarded prognosis to [facility]. Patient will follow-up with Dr. Cuellar in the outpatient setting upon discharge. Patient is to follow-up with Dr. Brush outpatient in the next 2-3 weeks. Total time taken is greater than 35 minutes. Hospital course This is a 76-year-old male who was recently admitted with elective hip surgery on the right although in the preop area was found to be hypotensive and brought to the emergency department for further evaluation. Patient was normally on aspirin and Plavix although was being held for surgery. Patient also placed on IV antibiotics in the form of ceftriaxone for possible urinary tract infection. Urine culture finalized showing normal apparent skin walt and will not require any further antibiotics. Orthopedics evaluated the patient with no plans for immediate surgical intervention and instructed the patient to follow-up outpatient at the clinic with Dr. Brush. Will resume aspirin and Plavix. Recommend continue holding blood pressure medication for now as patient is currently normotensive other than metoprolol which has been resumed. Recommend holding lisinopril and hydrochlorothiazide at this time. Currently no reports of chest pain, shortness of breath, or palpitations. Patient is afebrile. No reports of nausea or vomiting and patient is tolerating tube feeds. Patient will be going to [facility] today. Physical exam: Gen: This is a 76-year-old male awake, alert and oriented HEENT: Head is atraumatic, normocephalic. Pupils equal, round. Sclerae is anicteric. NECK: Supple. No JVD. No lymphadenopathy. No thyromegaly. LUNGS: Clear to auscultation. No wheezes or rhonchi. No intercostal retractions. HEART: Regular rate and rhythm. No murmur. ABDOMEN: Soft. Bowel sounds are present. No masses. No tenderness. EXTREMITIES: No pedal edema. No calf tenderness. NEUROLOGICAL: Patient is awake, alert and oriented x3. Cranial nerves 2 through 12 are grossly intact. Please refer to medication reconciliation sheet for a list of medications. The impression and plan of care has been dictated by Kady Partida, Nurse Practitioner as directed. Dr. Amy MD I have performed a history and examination and MDM of this patient, discussed the same with the dictator, and agree with the dictator's assessment and plan as written ,documented as a scribe. Based on total visit time, I have performed more than 50% of the visit. Patient Condition at Discharge: Stable Plan - Discharge Summary New Discharge Prescriptions: Continue Baclofen 10 mg PEG/G-TUBE Q8H PRN PRN Reason: Muscle Spasm ARIPiprazole [Abilify] 5 mg PEG/G-TUBE DAILY busPIRone HCL 15 mg PEG/G-TUBE BID Clopidogrel [Plavix] 75 mg PEG/G-TUBE DIRECTED Famotidine [Pepcid] 20 mg PEG/G-TUBE DAILY Doxazosin [Cardura] 2 mg PEG/G-TUBE DAILY Aspirin 81 mg PEG/G-TUBE DIRECTED Magnesium Hydroxide [Milk of Magnesia] 30 ml PEG/G-TUBE Q48H PRN PRN Reason: Constipation Loratadine [Claritin] 10 mg PEG/G-TUBE DAILY Saliva Stimulant Comb. No.3 [Biotene Moisturizing Mouth] 1 spray MUCOUS MEM TID PRN PRN Reason: Dry Mouth Metoprolol Tartrate 25 mg PEG/G-TUBE BID bisacodyL [Dulcolax] 10 mg RECTAL Q72H PRN PRN Reason: Constipation Meloxicam [Mobic] 15 mg PEG/G-TUBE DIRECTED Atorvastatin [Lipitor] 40 mg PEG/G-TUBE HS FLUoxetine HCL [PROzac] 20 mg PEG/G-TUBE BID Ondansetron [Zofran] 4 mg PEG/G-TUBE Q6H PRN PRN Reason: Nausea Carbidopa-Levodopa 25-100 mg [Sinemet 25-100 mg] 1 tab PEG/G-TUBE QID Acetaminophen [Acetaminophen Oral Soln] 20 ml PEG/G-TUBE Q4H PRN PRN Reason: Pain levETIRAcetam [Keppra Oral Solution] 7.5 ml PEG/G-TUBE BID Oxybutynin Chloride 5 mg PEG/G-TUBE BID Metoclopramide [Reglan] 5 mg PEG/G-TUBE QID Docusate Oral Soln [Colace Oral Soln] 10 ml PEG/G-TUBE HS Discontinued Lisinopril-Hctz 10-12.5 mg [Zestoretic 10-12.5] 1 tab PEG/G-TUBE DAILY Discharge Medication List ARIPiprazole [Abilify] 5 mg PEG/G-TUBE DAILY 08/06/21 [History] Atorvastatin [Lipitor] 40 mg PEG/G-TUBE HS 08/06/21 [History] Baclofen 10 mg PEG/G-TUBE Q8H PRN 08/06/21 [History] Clopidogrel [Plavix] 75 mg PEG/G-TUBE DIRECTED 08/06/21 [History] FLUoxetine HCL [PROzac] 20 mg PEG/G-TUBE BID 08/06/21 [History] Meloxicam [Mobic] 15 mg PEG/G-TUBE DIRECTED 08/06/21 [History] busPIRone HCL 15 mg PEG/G-TUBE BID 08/06/21 [History] Acetaminophen [Acetaminophen Oral Soln] 20 ml PEG/G-TUBE Q4H PRN 10/04/21 [History] Aspirin 81 mg PEG/G-TUBE DIRECTED 10/04/21 [History] Carbidopa-Levodopa 25-100 mg [Sinemet 25-100 mg] 1 tab PEG/G-TUBE QID 10/04/21 [History] Docusate Oral Soln [Colace Oral Soln] 10 ml PEG/G-TUBE HS 10/04/21 [History] Doxazosin [Cardura] 2 mg PEG/G-TUBE DAILY 10/04/21 [History] Famotidine [Pepcid] 20 mg PEG/G-TUBE DAILY 10/04/21 [History] Loratadine [Claritin] 10 mg PEG/G-TUBE DAILY 10/04/21 [History] Magnesium Hydroxide [Milk of Magnesia] 30 ml PEG/G-TUBE Q48H PRN 10/04/21 [History] Metoclopramide [Reglan] 5 mg PEG/G-TUBE QID 10/04/21 [History] Ondansetron [Zofran] 4 mg PEG/G-TUBE Q6H PRN 10/04/21 [History] Oxybutynin Chloride 5 mg PEG/G-TUBE BID 10/04/21 [History] levETIRAcetam [Keppra Oral Solution] 7.5 ml PEG/G-TUBE BID 10/04/21 [History] Metoprolol Tartrate 25 mg PEG/G-TUBE BID 11/29/21 [History] Saliva Stimulant Comb. No.3 [Biotene Moisturizing Mouth] 1 spray MUCOUS MEM TID PRN 11/29/21 [History] bisacodyL [Dulcolax] 10 mg RECTAL Q72H PRN 11/29/21 [History] Follow up Appointment(s)/Referral(s): Brennan Cuellar MD [Primary Care Provider] - 1-2 days Terrance Brush DO [Doctor of Osteopathic Medicine] - 2 Weeks Activity/Diet/Wound Care/Special Instructions: Patient is returning to [facility] Activity as tolerated Follow-up with primary care provider on discharge Follow-up with orthopedics outpatient next 2 weeks Continue with tube feedings with Jevity 1.5 with a goal rate of 65 and 1300 mL daily and free water flushes every 4 hours with 30 mL's, monitor residuals Maintain aspiration precautions with head of the bed elevated 30-45 at all times Discharge Disposition: TRANSFER TO SNF/ECF
== END 2021-12-07 14:00 ==
LOC: EC 09:18 → 5NMEDONC 11:22
PROVIDERS: ADMIT Internal Medicine; ATTEND Internal Medicine
DX: I95.9 Hypotension, unspecified (principal); E86.9 Volume depletion, unspecified; M16.11 Unilateral primary osteoarthritis, right hip; I10 Essential (primary) hypertension; E78.5 Hyperlipidemia, unspecified; G20 Parkinson's disease; G47.33 Obstructive sleep apnea (adult) (pediatric); F32.A Depression, unspecified; N40.0 Benign prostatic hyperplasia without lower urinary tract symptoms; Z74.01 Bed confinement status; Z86.73 Personal history of transient ischemic attack (TIA), and cerebral infarction without residual deficits; Z93.1 Gastrostomy status; Z79.02 Long term (current) use of antithrombotics/antiplatelets; Z79.82 Long term (current) use of aspirin; Z79.899 Other long term (current) drug therapy; Z82.49 Family history of ischemic heart disease and other diseases of the circulatory system
CPT/HCPCS: 96361 ×3; 96365; 96366 ×2; 96376; 96375; 99285; 36415; 93005; 97110; 97530 ×2; 97162; 97166; 82747; 80053; 80048 ×3; 84443; 82607; 83605; 83735; 85025 ×4; 85610; 85730; 81001; 87086; 71046; G0378 ×4; J0696 ×4

== ENCOUNTER → 2021-12-04 | Day surgery (SDC) | payer MEDICARE, BC ==
[~2021-12-04] MED LIST: ACETAMINOPHEN TAB 500 MG TAB PO PRN; DEXAMETHASONE SOD PHOSPHATE 4 MG/ML 1 ML VIAL IV ONE; GABAPENTIN 300 MG CAP PO PRN; HYDROmorphone 0.5 MG/0.5 ML SYRINGE IVP PRN; LACTATED RINGERS 1,000 ML IV SCH; MELOXICAM 7.5 MG TAB PO PRN; ONDANSETRON 4 MG/2 ML VIAL IVP ONE; TRANEXAMIC ACID IN NACL,ISO-OS 1,000 MG in SALINE 1 100ML.BAG IVPB PRN
[2021-12-04 08:19] VITALS: TEMP 97.9
[2021-12-04 09:08] VITALS: BP 86/53; PULSE 70; RESP 16
== END ==
LOC: OR 06:47
PROVIDERS: ATTEND Orthopaedic Surgery
DX: M16.11 Unilateral primary osteoarthritis, right hip (principal); Z53.8 Procedure and treatment not carried out for other reasons; I10 Essential (primary) hypertension; E78.5 Hyperlipidemia, unspecified; F32.A Depression, unspecified; Z97.3 Presence of spectacles and contact lenses; Z90.89 Acquired absence of other organs; Z82.49 Family history of ischemic heart disease and other diseases of the circulatory system
CPT/HCPCS: 86850; 86900; 86901

== ENCOUNTER → 2022-08-26 | Outpatient (CLI) | payer MEDICARE, BC ==
[2022-08-26 10:29] LABS: INR 0.9 (<1.2); Prothrombin Time 9.9 sec (9.0-12.0)
[2022-08-26 16:24] LABS: ALT 11 U/L (10-49); AST 30 U/L (14-35); Albumin 4.2 d/dL (3.8-4.9); Albumin/Globulin Ratio 1.35 Ratio (1.60-3.17); Alkaline Phosphatase 101 U/L (41-126); Blood Urea Nitrogen 23.2 mg/dL (9.0-27.0); Calcium 10.4 mg/dL (8.7-10.3); Carbon Dioxide 24.2 mmol/L (21.6-31.8); Chloride 100 mmol/L (96-109); Globulin 3.1 d/dL (1.6-3.3); Glucose 88 mg/dL (70-110); Potassium 5.2 mmol/L (3.5-5.5); Sodium 139 mmol/L (135-145); Total Bilirubin 0.5 mg/dL (0.3-1.2); Total Protein 7.3 d/dL (6.2-8.2)
[2022-08-26 18:17] LABS: HCT 47.8 % (39.6-50.0); HGB 15.2 d/dL (12.0-15.0); MCH 31.1 pg (27.0-32.0); MCHC 31.8 d/dL (32.0-37.0); MCV 97.8 FL (80.0-97.0); Mean Platelet Volume 13.7 FL (9.5-12.2); NRBC Per 100 WBC 0 X 10*3/uL (0.00-0.01); Platelet Count 260 X 10*3/uL (140-440); RBC 4.89 X 10*6/uL (4.40-5.60); RDW 13.2 % (11.5-14.5); WBC 10.04 X 10*3/uL (4.50-10.00)
== END | disposition home or self-care (01) ==
LOC: LABPAT 08:39
PROVIDERS: ATTEND Orthopaedic Surgery
DX: Z01.812 Encounter for preprocedural laboratory examination (principal); I51.7 Cardiomegaly; I49.9 Cardiac arrhythmia, unspecified; M16.11 Unilateral primary osteoarthritis, right hip; R94.31 Abnormal electrocardiogram [ECG] [EKG]
CPT/HCPCS: 80053; 85027; 85610; 85730; 86850; 86900; 86901; 87070; 93005

== ENCOUNTER 2022-09-03 07:58 | Inpatient (IN) | payer MEDICARE, BC ==
[~2022-09-03 07:58] MED LIST changes: -ACETAMINOPHEN TAB 500 MG TAB PO PRN; -GABAPENTIN 300 MG CAP PO PRN; -LACTATED RINGERS 1,000 ML IV SCH; +LIDOCAINE 1% (10MG/ML) FOR IV START INTRADERMA PRN; -MELOXICAM 7.5 MG TAB PO PRN; -TRANEXAMIC ACID IN NACL,ISO-OS 1,000 MG in SALINE 1 100ML.BAG IVPB PRN; +VANCOMYCIN 1,250 MG in SODIUM CHLORIDE 0.9% 250 ML IVPB PRN; +droPERidol 5 MG/2 ML VIAL IVP ONE
[2022-09-03] MEDS: LACTATED RINGERS 1,000 ML IV SCH (08:22)
[2022-09-03] MEDS ORDERED: ePHEDrine 50 MG/ML 1 ML VIAL ONE (09:53)
[2022-09-03] MEDS ORDERED: fentaNYL (PF) 50 MCG/ML 2 ML AMP ONE (09:53)
[2022-09-03] MEDS ORDERED: MIDAZOLAM 2 MG/2 ML VIAL ONE (09:53)
[2022-09-03] MEDS ORDERED: KETAMINE 10 MG/ML 20 ML VIAL ONE (09:53)
[2022-09-03] MEDS ORDERED: ceFAZolin 1,000 MG in SODIUM CHLORIDE 0.9% 1,000 ML IRRIGATION ONE (09:55)
[2022-09-03] MEDS ORDERED: ROPIVACAINE 5 MG/ML 30 ML VIAL MISCELLANE ONE ×2 (10:30→10:35)
[2022-09-03] MEDS ORDERED: MAGNESIUM HYDROXIDE 2,400 MG/30 ML CUP PO PRN (11:18)
[2022-09-03] MEDS ORDERED: HYDROmorphone 0.5 MG/0.5 ML SYRINGE IVP PRN ×2 (11:18)
[2022-09-03] MEDS ORDERED: NALOXONE 0.4 MG/ML 1 ML VIAL IV PRN (11:18)
--- NOTE | 2022-09-03 11:21 | P.OP ---
Date of Procedure: 09/03/22 Preoperative Diagnosis: Severe osteoarthritis of the right hip Postoperative Diagnosis: Severe osteoarthritis of the right hip Procedure(s) Performed: Girdlestone resection arthroplasty right hip Anesthesia: spinal Surgeon: Terrance Brush District Resource Officer #1: Alba Vallejo Estimated Blood Loss (ml): 100 Pathology: none sent Condition: stable Disposition: PACU Indications for Procedure: This is a 77-year-old male with severe osteoarthritis of his right hip. His arthritis in his right hip causes him severe pain and severely restricts his mobility. We have discussed the surgical options including a right total hip arthroplasty versus a Girdlestone resection arthroplasty. Due to his poor health condition and the high probability of complications following a total hip arthroplasty, I have recommended a Girdlestone resection arthroplasty of the right hip. Informed consent was obtained. Operative Findings: The operative findings are consistent with severe osteoarthritis of the right hip Description of Procedure: Patient was seen and evaluated in the preoperative area, consent was reviewed and the operative site was marked with a skin marker. Patient was then brought to the operating room and given preoperative antibiotics intravenously. A spinal anesthetic was administered by the anesthesia department. Patient was then placed in a lateral decubitus position and held with a Montral hip positioner. The bony prominences were well-padded and an axillary roll was placed. The hip was then prepped and draped in the usual sterile fashion. A universal timeout was then performed which confirmed the patient's name, surgical site, ALLERGIES, and procedure. A standard anterolateral approach the hip was performed. Skin and subcutaneous tissues were sharply incised with an incision centered over the tip of the greater trochanter. The incision was carefully dissected down to the fascia. The fascia was then split in line with skin incision and a Charnley retractor was gently placed. The abductors were then identified, and the anterior one third of the abductors were released off the trochanter and one large sleeve. The proximal femur was osteotomized at the appropriate level of the above the lesser trochanter. Using a corkscrew, the femoral head was removed from the acetabulum without incident. The hip was again irrigated with pulsatile lavage, then followed by the Irrrisept solution. The abductors were then repaired through drill holes to the bone to the greater trochanter, utilizing #5 Ethibond suture. Next the fascia was repaired with #2 strata fix suture. The subcutaneous tissue was then repaired with 3-0 Vicryl. The subcuticular tissue was then repaired with 3-0 strata fix suture. Skin was then closed with Exofin skin glue. A sterile dressing was then applied and the patient was transported to the recovery room in stable condition. District Resource Officer DANNY Lujan was required due to the complexity of surgery the need for skilled surgical orderly. She assisted with positioning the patient, draping the patient, retraction during the surgery, and closure of the wound.
[2022-09-03] MEDS ORDERED: traMADol 50 MG TAB PO PRN ×2 (11:23)
[2022-09-03] MEDS: SODIUM CHLORIDE 0.9% 1,000 ML IV SCH (16:25)
[2022-09-03] MEDS: HYDROmorphone 0.5 MG/0.5 ML SYRINGE IVP PRN ×2 (16:43→21:01)
[2022-09-03] MEDS ORDERED: LORATADINE 10 MG TAB PEG/G-TUBE PRN (18:09)
[2022-09-03] MEDS ORDERED: ONDANSETRON 4 MG TAB PEG/G-TUBE PRN (18:09)
[2022-09-03] MEDS ORDERED: MAGNESIUM HYDROXIDE 2,400 MG/30 ML CUP PEG/G-TUBE PRN (18:09)
[2022-09-03] MEDS ORDERED: ACETAMINOPHEN ORAL SUSP (PEDS) 3,840 MG/120 ML BOTTLE PEG/G-TUBE PRN (18:09)
[2022-09-03] MEDS ORDERED: bisacodyL 10 MG SUPP RECTAL PRN (18:09)
[2022-09-03] MEDS ORDERED: BACLOFEN 10 MG TAB PEG/G-TUBE PRN (18:09)
[2022-09-03] MEDS ORDERED: ASPIRIN 81 MG PEG/G-TUBE SCH (18:15)
[2022-09-03] MEDS: ONDANSETRON 4 MG/2 ML VIAL IVP PRN (18:23)
[2022-09-03] MEDS ORDERED: VANCOMYCIN 1,250 MG in SODIUM CHLORIDE 0.9% 250 ML IVPB ONE (22:00)
[2022-09-03] MEDS: ASPIRIN 81 MG PO SCH (22:36)
[2022-09-03] MEDS: CARBIDOPA-LEVODOPA 25-100 MG 1 EACH TAB PEG/G-TUBE SCH (22:36)
[2022-09-03] MEDS: FLUoxetine HCL 20 MG CAP PEG/G-TUBE SCH (22:36)
[2022-09-03] MEDS: SENNOSIDES-DOCUSATE SODIUM 1 EACH TAB PO SCH (22:36)
[2022-09-03] MEDS: ALPRAZolam 0.25 MG TAB PEG/G-TUBE SCH (22:37)
[2022-09-03] MEDS: busPIRone HCl 5 MG TAB PEG/G-TUBE SCH (22:37)
[2022-09-03] MEDS: METOPROLOL TARTRATE 50 MG TAB PEG/G-TUBE SCH (22:37)
[2022-09-03] MEDS: ATORVASTATIN 40 MG TAB PEG/G-TUBE SCH (22:37)
[2022-09-03] MEDS: levETIRAcetam ORAL SOLN 500 MG/5 ML CUP PEG/G-TUBE SCH (22:38)
[2022-09-03] MEDS: DOCUSATE ORAL SOLN 100 MG/10 ML CUP PEG/G-TUBE SCH (22:38)
[2022-09-04] MEDS: HYDROmorphone 0.5 MG/0.5 ML SYRINGE IVP PRN ×4 (03:46→21:32)
[2022-09-04] MEDS: CARBIDOPA-LEVODOPA 25-100 MG 1 EACH TAB PEG/G-TUBE SCH ×3 (03:47→21:35)
[2022-09-04] MEDS: ONDANSETRON 4 MG/2 ML VIAL IVP PRN (03:52)
[2022-09-04 05:09] LABS: Glucose,Whole Blood 108 mg/dL (70-110)
[2022-09-04] MEDS: SODIUM CHLORIDE 0.9% 1,000 ML IV SCH ×2 (06:09→09:23)
[2022-09-04] MEDS: busPIRone HCl 5 MG TAB PEG/G-TUBE SCH ×2 (08:58→21:35)
[2022-09-04] MEDS: METOPROLOL TARTRATE 50 MG TAB PEG/G-TUBE SCH ×2 (08:58→21:35)
[2022-09-04] MEDS: ASPIRIN 81 MG PO SCH ×2 (08:59→21:34)
[2022-09-04] MEDS: CLOPIDOGREL 75 MG TAB PO SCH (08:59)
[2022-09-04] MEDS: ALPRAZolam 0.25 MG TAB PEG/G-TUBE SCH ×2 (08:59→21:34)
[2022-09-04] MEDS: MELOXICAM 7.5 MG TAB PEG/G-TUBE SCH (08:59)
[2022-09-04] MEDS: FLUoxetine HCL 20 MG CAP PEG/G-TUBE SCH ×2 (08:59→21:35)
[2022-09-04] MEDS: ARIPiprazole 5 MG TAB PEG/G-TUBE SCH (09:00)
[2022-09-04] MEDS: levETIRAcetam ORAL SOLN 500 MG/5 ML CUP PEG/G-TUBE SCH ×2 (09:00→21:35)
[2022-09-04] MEDS: PANTOPRAZOLE SODIUM 40 MG GRANULE PKT PEG/G-TUBE SCH (09:00)
--- NOTE | 2022-09-04 09:46 | P.PN ---
Subjective Progress Note Date: 09/04/22 This is a 77-year-old male who is status post Girdlestone resection arthroplasty of the right hip. This is postoperative day #1 and patient is seen and evaluated at bedside with Dr. Terrance Brush. Patient is nonverbal and has no family present at bedside today. Patient does respond to questions with nods. Patient states that his pain is controlled today. Objective - Vital Signs Vital signs: Vital Signs Temp 97.9 F 09/04/22 07:07 Pulse 80 09/04/22 07:07 Resp 16 09/04/22 07:07 BP 116/66 09/04/22 07:07 Pulse Ox 93 L 09/04/22 07:07 FiO2 Intake & Output 09/03/22 09/04/22 09/04/22 18:59 06:59 18:59 Intake Total 1151 Output Total 100 Balance 1051 Weight 85.729 kg Intake: IV 1151 Output: Estimated Blood Loss 100 Other: Voiding Method Diaper Incontinent # Voids 2 3 - Exam Vital signs are stable. Patient is in no acute distress and is alert and oriented 3. Calf is soft and nontender to palpation. Dressing is clean, dry, and intact. Patient has full foot and ankle motion without pain or difficulty. Sensation intact. Neurovascular status and circulatory status are intact. Assessment and Plan Assessment: Status post Girdlestone resection arthroplasty of the right hip. (1) Osteoarthritis of right hip Current Visit: Yes Status: Acute Code(s): M16.11 - UNILATERAL PRIMARY OSTEOARTHRITIS, RIGHT HIP SNOMED Code(s): 753718143778255 Plan: Continue routine postop care and pain control. Patient is resumed Plavix and is taking aspirin 81 mg twice daily. Weightbearing as tolerated with assistance. Leave dressing in place for 7 days. Appreciate input from medicine. Anticipate discharge back to [facility] once authorized and cleared medically.
[2022-09-04 10:08] LABS: Basophils # (A) 0.05 X 10*3/uL (0.00-0.10); Basophils % (A) 0.4 %; Eosinophils # (A) 0 X 10*3/uL (0.04-0.35); Eosinophils % (A) 0 %; HCT 37.7 % (39.6-50.0); HGB 12.2 d/dL (12.0-15.0); Lymphocytes % (A) 11.5 %; MCHC 32.4 d/dL (32.0-37.0); MCV 95.7 FL (80.0-97.0); Mean Platelet Volume 13.2 FL (9.5-12.2); Monocytes # (A) 1.93 X 10*3/uL (0.20-1.00); Monocytes % (A) 15.8 %; NRBC Per 100 WBC 0 X 10*3/uL (0.00-0.01); Neutrophils # (A) 8.76 X 10*3/uL (1.80-7.70); Neutrophils % (A) 71.9 %; Platelet Count 325 X 10*3/uL (140-440); RBC 3.94 X 10*6/uL (4.40-5.60); RBC Morphology Normal (Normal); RDW 12.9 % (11.5-14.5); WBC 12.19 X 10*3/uL (4.50-10.00)
--- NOTE | 2022-09-04 10:50 | XR ---
EXAMINATION TYPE: XR Hip Limited RT DATE OF EXAM: 09/03/2022 11:44 AM INDICATION: Patient age:Male; 77 years old; Reason for study: Status post hip surgery, assess surgical alignment; PHH. COMPARISON: None. TECHNIQUE: The right hip was examined in the frontal projections FINDINGS/IMPRESSION: There is moderate to severe degeneration changes with abnormal appearance of the right hip specifically the right femoral head is poorly visualized. No evidence of fracture. There i s osteophyte formation and sclerosis of the acetabulum. There is severe atherosclerosis of the arteri al vasculature. Postsurgical subcutaneous lucencies. Compatible with recent surgery.
[2022-09-04 11:35] LABS: Glucose,Whole Blood 104 mg/dL (70-110)
--- NOTE | 2022-09-04 14:16 | P.CONS ---
History of Present Illness - Reason for Consult Consult date: 09/04/22 Medical management - History of Present Illness History of present illness; patient is 77-year-old gentleman with past medical history significant for hypertension, hyperlipidemia, depression who presented to the hospital for elective right hip total arthroplasty. Patient was being seen outpatient by orthopedic's, patient has been having right-sided hip pain, therapy session were attempted but patient did not notice any improvement. Patient followed up with orthopedics and to schedule patient for right total hip arthroplasty. Postoperatively the medicine team was consulted for medical management REVIEW OF SYSTEMS: CONSTITUTIONAL: No fever, no malaise, no fatigue. HEENT: No recent visual problems or hearing problems. Denied any sore throat. CARDIOVASCULAR: No chest pain, orthopnea, PND, no palpitations, no syncope. PULMONARY: No shortness of breath, no cough, no hemoptysis. GASTROINTESTINAL: As mentioned in HPI NEUROLOGICAL: No headaches, no weakness, no numbness. HEMATOLOGICAL: Denies any bleeding or petechiae. GENITOURINARY: Denies any burning micturition, frequency, or urgency. MUSCULOSKELETAL/RHEUMATOLOGICAL: Right hip pain ENDOCRINE: Denies any polyuria or polydipsia. The rest of the 14-point review of systems is negative. PHYSICAL EXAMINATION: GENERAL: The patient is alert, not in any acute distress. Well developed, well nourished. HEENT: Pupils are round and equally reacting to light. EOMI. No scleral icterus. No conjunctival pallor. Normocephalic, atraumatic. No pharyngeal erythema. No thyromegaly. CARDIOVASCULAR: S1 and S2 present. No murmurs, rubs, or gallops. PULMONARY: Chest is clear to auscultation, no wheezing or crackles. ABDOMEN: Soft, nontender, nondistended, normoactive bowel sounds. No palpable organomegaly. PEG tube seen MUSCULOSKELETAL: No joint swelling or deformity. Right hip surgical incision seen EXTREMITIES: No cyanosis, clubbing, or pedal edema. NEUROLOGICAL: Gross neurological examination did not reveal any focal deficits. SKIN: No rashes. Assessment and plan Severe osteoarthritis of right hip, status post right hip arthroplasty Hypertension Hyperlipidemia History of CVA/TIA Parkinson's disease Obstructive sleep apnea Depression Monitor vital signs Monitor CBC Monitor CMP Continue pain management per orthopedics Continue DVT prophylaxis per orthopedics Resume aspirin and Plavix once okay with Ortho Resume tube feeding Labs and medication were reviewed.. Continue same treatment. Continue with symptomatic treatment. Resume home medication. Monitor labs and vitals. DVT and GI prophylaxis. Further recommendations as per clinical course of the patient Past Medical History Past Medical History: CVA/TIA, Hyperlipidemia, Hypertension, Neurologic Disorder, Osteoarthritis (OA), Prostate Disorder, Sleep Apnea/CPAP/BIPAP Additional Past Medical History / Comment(s): sleep apnea- doesnt use machine ( due to stroke and parkinsons). parkinsons. stroke 05/15 after hernia surgery, peg tube for feedings and meds. swallowing issues nothing by mouth, no skin issues per [facility]. urinary incontinence, currently tx. for UTI History of Any Multi-Drug Resistant Organisms: None Reported Past Surgical History: Hernia Repair, Tonsillectomy Additional Past Surgical History / Comment(s): 05/15 rt inquinal hernia repair, TURP 2022 Past Anesthesia/Blood Transfusion Reactions: No Reported Reaction Additional Past Anesthesia/Blood Transfusion Reaction / Comm: no blood hx Past Psychological History: Depression Smoking Status: Never smoker Past Alcohol Use History: None Reported Past Drug Use History: None Reported - Past Family History Father Family Medical History: Coronary Artery Disease (CAD) Mother Family Medical History: No Reported History Medications and Allergies Home Medications Medication Instructions Recorded Confirmed Type ARIPiprazole [Abilify] 5 mg PEG/G-TUBE DAILY 08/06/21 09/03/22 History Atorvastatin [Lipitor] 40 mg PEG/G-TUBE HS 08/06/21 09/03/22 History Baclofen 10 mg PEG/G-TUBE Q8H PRN 08/06/21 09/03/22 History Clopidogrel [Plavix] 75 mg PEG/G-TUBE DIRECTED 08/06/21 09/02/22 History FLUoxetine HCL [PROzac] 20 mg PEG/G-TUBE BID 08/06/21 09/03/22 History Meloxicam [Mobic] 15 mg PEG/G-TUBE DAILY 08/06/21 09/03/22 History busPIRone HCL 15 mg PEG/G-TUBE BID 08/06/21 09/03/22 History Acetaminophen [Acetaminophen Oral 20 ml PEG/G-TUBE Q4H PRN 10/04/21 09/03/22 History Soln] Aspirin 81 mg PEG/G-TUBE DIRECTED 10/04/21 09/02/22 History Carbidopa-Levodopa 25-100 mg 1 tab PEG/G-TUBE 1500 10/04/21 09/02/22 History [Sinemet 25-100 mg] Docusate Oral Soln [Colace Oral 10 ml PEG/G-TUBE HS 10/04/21 09/03/22 History Soln] Loratadine [Claritin] 10 mg PEG/G-TUBE DAILY PRN 10/04/21 09/03/22 History Magnesium Hydroxide [Milk of 30 ml PEG/G-TUBE Q48H PRN 10/04/21 09/03/22 History Magnesia] Ondansetron [Zofran] 4 mg PEG/G-TUBE Q6H PRN 10/04/21 09/02/22 History levETIRAcetam [Keppra Oral 7.5 ml PEG/G-TUBE BID 10/04/21 09/03/22 History Solution] Metoprolol Tartrate 50 mg PEG/G-TUBE BID 11/29/21 09/03/22 History Saliva Stimulant Comb. No.3 1 spray MUCOUS MEM TID PRN 11/29/21 09/03/22 History [Biotene Moisturizing Mouth] bisacodyL [Dulcolax] 10 mg RECTAL Q72H PRN 11/29/21 09/02/22 History Esomeprazole Magnesium 20 mg PEG/G-TUBE DAILY 03/21/22 09/03/22 History ALPRAZolam [Xanax] 0.25 mg PEG/G-TUBE BID 09/02/22 09/03/22 History Carbidopa-Levodopa 25-100 mg 2 each PEG/G-TUBE 0,199909/02/22 09/03/22 History [Sinemet 25-100] Jevity 1.5 River Liquid 0 ml PO DIRECTED 09/02/22 09/02/22 History cefTRIAXone [Rocephin] 1 gm IM Q24H 09/02/22 09/03/22 History Aspirin [Adult Low Dose Aspirin EC] 81 mg PEG/G-TUBE BID 30 Days #60 09/04/22 Rx tab traMADol HCl [Ultram] 1 - 2 tab PEG/G-TUBE Q6H PRN #32 09/04/22 Rx tab Allergies Allergy/AdvReac Type Severity Reaction Status Date / Time No Known Allergies Allergy Verified 09/02/22 11:25 Physical Exam Vitals: Vital Signs Temp Pulse Resp BP Pulse Ox 09/04/22 07:07 97.9 F 80 16 116/66 93 L 09/04/22 02:00 97.5 F L 95 17 120/82 93 L 09/03/22 20:00 97.7 F 92 17 112/75 91 L 09/03/22 15:40 97.4 F L 73 18 148/80 90 L 09/03/22 14:15 57 L 16 114/61 92 L 09/03/22 13:45 63 16 111/59 95 09/03/22 13:15 58 L 16 110/56 91 L 09/03/22 13:06 55 L 16 104/56 91 L 09/03/22 12:30 57 L 16 101/55 92 L 09/03/22 12:15 58 L 16 105/53 93 L 09/03/22 12:00 52 L 16 105/57 99 09/03/22 11:44 54 L 16 101/58 99 09/03/22 11:29 59 L 16 102/60 98 09/03/22 11:14 97 F L 61 12 108/60 95 Intake and Output 09/03/22 09/04/22 09/04/22 22:59 06:59 14:59 Other: Voiding Method Diaper Incontinent # Voids 2 3 Weight 85.729 kg Results CBC & Chem 7: 09/04/22 05:01 Labs: Abnormal Lab Results - Last 24 Hours (Table) 09/04/22 Range/Units 05:01 WBC 12.19 H (4.50-10.00) X 10*3/uL RBC 3.94 L (4.40-5.60) X 10*6/uL Hct 37.7 L (39.6-50.0) % MPV 13.2 H (9.5-12.2) FL Neutrophils # 8.76 H (1.80-7.70) X 10*3/uL Monocytes # 1.93 H (0.20-1.00) X 10*3/uL Eosinophils # 0 L (0.04-0.35) X 10*3/uL
[2022-09-04 18:12] LABS: Glucose,Whole Blood 87 mg/dL (70-110)
[2022-09-04] MEDS: SENNOSIDES-DOCUSATE SODIUM 1 EACH TAB PO SCH (21:34)
[2022-09-04] MEDS: ATORVASTATIN 40 MG TAB PEG/G-TUBE SCH (21:35)
[2022-09-04] MEDS: DOCUSATE ORAL SOLN 100 MG/10 ML CUP PEG/G-TUBE SCH (21:35)
[2022-09-05 01:50] LABS: Glucose,Whole Blood 102 mg/dL (70-110)
[2022-09-05] MEDS: HYDROmorphone 0.5 MG/0.5 ML SYRINGE IVP PRN ×4 (01:55→21:39)
[2022-09-05] MEDS: LACTATED RINGERS 1,000 ML IV SCH (05:27)
[2022-09-05] MEDS: CARBIDOPA-LEVODOPA 25-100 MG 1 EACH TAB PEG/G-TUBE SCH ×3 (05:29→21:28)
[2022-09-05 05:46] LABS: Glucose,Whole Blood 102 mg/dL (70-110)
[2022-09-05] MEDS: ALPRAZolam 0.25 MG TAB PEG/G-TUBE SCH ×2 (08:53→21:28)
[2022-09-05] MEDS: levETIRAcetam ORAL SOLN 500 MG/5 ML CUP PEG/G-TUBE SCH ×2 (08:53→21:29)
[2022-09-05] MEDS: busPIRone HCl 5 MG TAB PEG/G-TUBE SCH ×2 (08:53→21:29)
[2022-09-05] MEDS: METOPROLOL TARTRATE 50 MG TAB PEG/G-TUBE SCH ×2 (08:54→21:30)
[2022-09-05] MEDS: MELOXICAM 7.5 MG TAB PEG/G-TUBE SCH (08:54)
[2022-09-05] MEDS: FLUoxetine HCL 20 MG CAP PEG/G-TUBE SCH ×2 (08:54→21:29)
[2022-09-05] MEDS: ASPIRIN 81 MG PO SCH ×2 (08:56→21:28)
[2022-09-05] MEDS: CLOPIDOGREL 75 MG TAB PO SCH (08:56)
[2022-09-05] MEDS: PANTOPRAZOLE SODIUM 40 MG GRANULE PKT PEG/G-TUBE SCH (08:56)
[2022-09-05] MEDS: ARIPiprazole 5 MG TAB PEG/G-TUBE SCH (08:56)
[2022-09-05 11:55] LABS: Glucose,Whole Blood 103 mg/dL (70-110)
[2022-09-05] MEDS ORDERED: HYDROcodone/APAP 5-325MG 1 EACH TAB PO PRN (12:10)
[2022-09-05] MEDS: SODIUM CHLORIDE 0.9% 1,000 ML IV SCH (12:12)
--- NOTE | 2022-09-05 12:14 | P.PN ---
Subjective Progress Note Date: 09/05/22 This is a 77-year-old male who is status post Girdlestone resection arthroplasty of the right hip. This is postoperative day #2 and patient is seen and evaluated at bedside today. Patient is nonverbal and has family present at bedside today. Nursing states that pain control has been an issue. Objective - Vital Signs Vital signs: Vital Signs Temp 98.5 F 09/05/22 07:26 Pulse 96 09/05/22 07:26 Resp 18 09/05/22 07:26 BP 121/76 09/05/22 07:26 Pulse Ox 92 L 09/05/22 07:26 FiO2 Intake & Output 09/04/22 09/05/22 09/05/22 18:59 06:59 18:59 Weight 85.729 kg 95.5 kg Other: Voiding Method Diaper Incontinent # Voids 2 # Bowel Movements 2 - Exam Vital signs are stable. Patient is in no acute distress and is alert and oriented 3. Mild swelling of the right thigh. Compartments are soft. Calf is soft and nontender to palpation. Dressing is clean, dry, and intact. Patient has full foot and ankle motion without pain or difficulty. Sensation intact. Neurovascular status and circulatory status are intact. - Labs CBC & Chem 7: 09/04/22 05:01 Assessment and Plan Assessment: Status post Girdlestone resection arthroplasty of the right hip. (1) Osteoarthritis of right hip Current Visit: Yes Status: Acute Code(s): M16.11 - UNILATERAL PRIMARY OSTEOARTHRITIS, RIGHT HIP SNOMED Code(s): 965935149916278 Plan: Continue routine postop care and pain control. Patient has resumed Plavix and is taking aspirin 81 mg twice daily. Weightbearing as tolerated with assistance. Leave dressing in place for 7 days. Appreciate input from medicine. Millry is ordered for pain. Anticipate discharge back to [facility] once authorized and cleared medically.
--- NOTE | 2022-09-05 13:40 | P.PN ---
Subjective Progress Note Date: 09/05/22 patient is 77-year-old gentleman with past medical history significant for hypertension, hyperlipidemia, depression who presented to the hospital for elective right hip total arthroplasty. Patient was being seen outpatient by orthopedic's, patient has been having right-sided hip pain, therapy session were attempted but patient did not notice any improvement. Patient followed up with orthopedics and to schedule patient for right total hip arthroplasty. Postoperatively the medicine team was consulted for medical management 09/05. Patient seen and examined. Family at the bedside. States he still has pain at the surgery site. REVIEW OF SYSTEMS: CONSTITUTIONAL: No fever, no malaise,. CARDIOVASCULAR: No chest pain, no palpitations, no syncope. PULMONARY: No shortness of breath, no cough, GASTROINTESTINAL: No diarrhea, no nausea, no vomiting, no abdominal pain. NEUROLOGICAL: No headaches, no weakness, PHYSICAL EXAMINATION: GENERAL: The patient is alert and oriented x3, not in any acute distress. Well developed, well nourished. HEENT: Pupils are round and equally reacting to light. EOMI. No scleral icterus. No conjunctival pallor. Normocephalic, atraumatic. No pharyngeal erythema. No thyromegaly. CARDIOVASCULAR: S1 and S2 present. No murmurs, rubs, or gallops. PULMONARY: Chest is clear to auscultation, no wheezing or crackles. ABDOMEN: Soft, nontender, nondistended, normoactive bowel sounds. No palpable organomegaly. PEG tube seen MUSCULOSKELETAL: No joint swelling or deformity. Right hip surgical incision seen EXTREMITIES: No cyanosis, clubbing, or pedal edema. NEUROLOGICAL: Gross neurological examination did not reveal any focal deficits. SKIN: No rashes. Assessment and plan Severe osteoarthritis of right hip, status post right hip arthroplasty Hypertension Hyperlipidemia History of CVA/TIA Parkinson's disease Obstructive sleep apnea Depression Monitor vital signs Monitor CBC Monitor CMP Continue telemetry monitoring Monitor CBC Monitor CMP Continue pain management per orthopedics Continue DVT prophylaxis per orthopedics Continue aspirin and Plavix Continue tube feeding Labs and medication were reviewed.. Continue same treatment. Continue with symptomatic treatment. Resume home medication. Monitor labs and vitals. DVT and GI prophylaxis. Further recommendations as per clinical course of the patient Objective - Vital Signs Vital signs: Vital Signs Temp 98.5 F 09/05/22 07:26 Pulse 96 09/05/22 07:26 Resp 18 09/05/22 07:26 BP 121/76 09/05/22 07:26 Pulse Ox 92 L 09/05/22 07:26 FiO2 Intake & Output 09/04/22 09/05/22 09/05/22 18:59 06:59 18:59 Weight 85.729 kg 95.5 kg Other: Voiding Method Diaper Incontinent # Voids 2 # Bowel Movements 2 - Labs CBC & Chem 7: 09/04/22 05:01
[2022-09-05] MEDS: HYDROcodone/APAP 5-325MG 1 EACH TAB PO PRN ×2 (13:54→19:09)
[2022-09-05 18:28] LABS: Glucose,Whole Blood 95 mg/dL (70-110)
[2022-09-05] MEDS: ATORVASTATIN 40 MG TAB PEG/G-TUBE SCH (21:28)
[2022-09-05] MEDS: DOCUSATE ORAL SOLN 100 MG/10 ML CUP PEG/G-TUBE SCH (21:29)
[2022-09-05] MEDS: SENNOSIDES-DOCUSATE SODIUM 1 EACH TAB PO SCH (21:30)
[2022-09-06 00:04] LABS: Glucose,Whole Blood 110 mg/dL (70-110)
[2022-09-06] MEDS: HYDROcodone/APAP 5-325MG 1 EACH TAB PO PRN ×2 (03:27→10:10)
[2022-09-06] MEDS: HYDROmorphone 0.5 MG/0.5 ML SYRINGE IVP PRN (04:08)
[2022-09-06] MEDS: CARBIDOPA-LEVODOPA 25-100 MG 1 EACH TAB PEG/G-TUBE SCH (04:10)
[2022-09-06 05:54] LABS: Glucose,Whole Blood 99 mg/dL (70-110)
[2022-09-06 07:37] VITALS: BP 110/67; PULSE 69; RESP 17; TEMP 98.1
--- NOTE | 2022-09-06 08:33 | P.DS ---
Providers Date of admission: 09/03/22 07:58 Expected date of discharge: 09/06/22 Attending physician: Terrance Brush Consults: 09/03/22 11:18 Consult Physician Routine Consulting Provider: Sara Mathew Consult Reason/Comments: medical management and anticoagulation Do you want consulting provider notified?: Yes Primary care physician: Brennan Emerson Cuellar - Discharge Diagnosis(es) (1) Osteoarthritis of right hip Current Visit: Yes Status: Acute (2) Status post Girdlestone procedure Current Visit: Yes Status: Acute Hospital Course: This is a 77-year-old male with known history of degenerative arthritis of the right hip. The patient presents for evaluation. After discussion and consideration patient' family elects to proceed with Girdlestone resection arthroplasty The patient is seen preoperatively by his primary care physician and cleared for surgery. Patient is admitted to [facility] on 09/03/2022 for a right hip Girdlestone resection arthroplasty. The procedures performed without complicat ion or sequelae. The patient is doing well postoperatively. Labs and vital signs are stable on day of discharge. On day of discharge patient's hip incision is healing well. There is minimal erythema. There is no drainage noted at this time. There is minimal soft tissue swelling to the hip and thigh. Neurovascular status to the right lower extremity is intact. Patient will be discharged back to [facility] in stable condition. Pertinent Studies: Laboratory Tests 09/04/22 09/05/22 05:01 05:44 WBC 12.19 H RBC 3.94 L Hct 37.7 L POC Glucose (mg/dL) 102 Patient Condition at Discharge: Fair Plan - Discharge Summary Discharge Rx Participant: No New Discharge Prescriptions: New Aspirin [Adult Low Dose Aspirin EC] 81 mg PEG/G-TUBE BID 30 Days #60 tab HYDROcodone/APAP 5-325MG [[place] 5-325] 1 - 2 tab PO Q6HR PRN #30 tab PRN Reason: Pain Continue Baclofen 10 mg PEG/G-TUBE Q8H PRN PRN Reason: Muscle Spasm Loratadine [Claritin] 10 mg PEG/G-TUBE DAILY PRN PRN Reason: allergies Discontinued cefTRIAXone [Rocephin] 1 gm IM Q24H No Action ARIPiprazole [Abilify] 5 mg PEG/G-TUBE DAILY busPIRone HCL 15 mg PEG/G-TUBE BID Clopidogrel [Plavix] 75 mg PEG/G-TUBE DIRECTED Aspirin 81 mg PEG/G-TUBE DIRECTED Magnesium Hydroxide [Milk of Magnesia] 30 ml PEG/G-TUBE Q48H PRN PRN Reason: Constipation Saliva Stimulant Comb. No.3 [Biotene Moisturizing Mouth] 1 spray MUCOUS MEM TID PRN PRN Reason: Dry Mouth Metoprolol Tartrate 50 mg PEG/G-TUBE BID bisacodyL [Dulcolax] 10 mg RECTAL Q72H PRN PRN Reason: Constipation Esomeprazole Magnesium 20 mg PEG/G-TUBE DAILY Meloxicam [Mobic] 15 mg PEG/G-TUBE DAILY Atorvastatin [Lipitor] 40 mg PEG/G-TUBE HS FLUoxetine HCL [PROzac] 20 mg PEG/G-TUBE BID Ondansetron [Zofran] 4 mg PEG/G-TUBE Q6H PRN PRN Reason: Nausea Carbidopa-Levodopa 25-100 mg [Sinemet 25-100 mg] 1 tab PEG/G-TUBE 1500 Acetaminophen [Acetaminophen Oral Soln] 20 ml PEG/G-TUBE Q4H PRN PRN Reason: Pain levETIRAcetam [Keppra Oral Solution] 7.5 ml PEG/G-TUBE BID Docusate Oral Soln [Colace Oral Soln] 10 ml PEG/G-TUBE HS Jevity 1.5 River Liquid 0 ml PO DIRECTED ALPRAZolam [Xanax] 0.25 mg PEG/G-TUBE BID Carbidopa-Levodopa 25-100 mg [Sinemet 25-100] 2 each PEG/G-TUBE 0,1999 Discharge Medication List ARIPiprazole [Abilify] 5 mg PEG/G-TUBE DAILY 08/06/21 [History] Atorvastatin [Lipitor] 40 mg PEG/G-TUBE HS 08/06/21 [History] Baclofen 10 mg PEG/G-TUBE Q8H PRN 08/06/21 [History] Clopidogrel [Plavix] 75 mg PEG/G-TUBE DIRECTED 08/06/21 [History] FLUoxetine HCL [PROzac] 20 mg PEG/G-TUBE BID 08/06/21 [History] Meloxicam [Mobic] 15 mg PEG/G-TUBE DAILY 08/06/21 [History] busPIRone HCL 15 mg PEG/G-TUBE BID 08/06/21 [History] Acetaminophen [Acetaminophen Oral Soln] 20 ml PEG/G-TUBE Q4H PRN 10/04/21 [History] Aspirin 81 mg PEG/G-TUBE DIRECTED 10/04/21 [History] Carbidopa-Levodopa 25-100 mg [Sinemet 25-100 mg] 1 tab PEG/G-TUBE 1500 10/04/21 [History] Docusate Oral Soln [Colace Oral Soln] 10 ml PEG/G-TUBE HS 10/04/21 [History] Loratadine [Claritin] 10 mg PEG/G-TUBE DAILY PRN 10/04/21 [History] Magnesium Hydroxide [Milk of Magnesia] 30 ml PEG/G-TUBE Q48H PRN 10/04/21 [History] Ondansetron [Zofran] 4 mg PEG/G-TUBE Q6H PRN 10/04/21 [History] levETIRAcetam [Keppra Oral Solution] 7.5 ml PEG/G-TUBE BID 10/04/21 [History] Metoprolol Tartrate 50 mg PEG/G-TUBE BID 11/29/21 [History] Saliva Stimulant Comb. No.3 [Biotene Moisturizing Mouth] 1 spray MUCOUS MEM TID PRN 11/29/21 [History] bisacodyL [Dulcolax] 10 mg RECTAL Q72H PRN 11/29/21 [History] Esomeprazole Magnesium 20 mg PEG/G-TUBE DAILY 03/21/22 [History] ALPRAZolam [Xanax] 0.25 mg PEG/G-TUBE BID 09/02/22 [History] Carbidopa-Levodopa 25-100 mg [Sinemet 25-100] 2 each PEG/G-TUBE 399,199909/02/22 [History] Jevity 1.5 River Liquid 0 ml PO DIRECTED 09/02/22 [History] Aspirin [Adult Low Dose Aspirin EC] 81 mg PEG/G-TUBE BID 30 Days #60 tab 09/04/22 [Rx] HYDROcodone/APAP 5-325MG [[place] 5-325] 1 - 2 tab PO Q6HR PRN #30 tab 09/05/22 [Rx] Follow up Appointment(s)/Referral(s): Terrance Brush DO [Doctor of Osteopathic Medicine] - 2 Weeks Activity/Diet/Wound Care/Special Instructions: Weightbearing as tolerated with walker. Leave dressing intact. Dressing may be removed by home care nurse or by patient in 7 days. Then change dressing twice daily until follow up. May shower with initial dressing intact and after removal. If dressing become saturated, please remove. Please resume Plavix and take aspirin 81mg twice daily for one month to help prevent blood clots. Recommend use of compression stockings daily until follow up to help prevent swelling and blood clots. May remove at night before sleeping. Please follow-up with [facility] in 2 weeks and call with any questions or concerns, . Discharge Disposition: TRANSFER TO SNF/ECF
[2022-09-06] MEDS: FLUoxetine HCL 20 MG CAP PEG/G-TUBE SCH (08:36)
[2022-09-06] MEDS: MELOXICAM 7.5 MG TAB PEG/G-TUBE SCH (08:36)
[2022-09-06] MEDS: CLOPIDOGREL 75 MG TAB PO SCH (08:36)
[2022-09-06] MEDS: ALPRAZolam 0.25 MG TAB PEG/G-TUBE SCH (08:36)
[2022-09-06] MEDS: METOPROLOL TARTRATE 50 MG TAB PEG/G-TUBE SCH (08:39)
[2022-09-06] MEDS: busPIRone HCl 5 MG TAB PEG/G-TUBE SCH (08:39)
[2022-09-06] MEDS: ARIPiprazole 5 MG TAB PEG/G-TUBE SCH (08:39)
[2022-09-06] MEDS: PANTOPRAZOLE SODIUM 40 MG GRANULE PKT PEG/G-TUBE SCH (08:39)
[2022-09-06] MEDS: ASPIRIN 81 MG PO SCH (08:40)
[2022-09-06] MEDS: levETIRAcetam ORAL SOLN 500 MG/5 ML CUP PEG/G-TUBE SCH (08:40)
[2022-09-06 11:05] LABS: Basophils # (A) 0.05 X 10*3/uL (0.00-0.10); Basophils % (A) 0.4 %; Eosinophils # (A) 1.72 X 10*3/uL (0.04-0.35); Eosinophils % (A) 15.4 %; HCT 29.2 % (39.6-50.0); HGB 9.2 d/dL (12.0-15.0); Lymphocytes # (A) 1.52 X 10*3/uL (0.90-5.00); Lymphocytes % (A) 13.6 %; MCH 31.3 pg (27.0-32.0); MCHC 31.5 d/dL (32.0-37.0); MCV 99.3 FL (80.0-97.0); Mean Platelet Volume 13.4 FL (9.5-12.2); Monocytes # (A) 1.58 X 10*3/uL (0.20-1.00); Monocytes % (A) 14.2 %; NRBC Per 100 WBC 0 X 10*3/uL (0.00-0.01); Neutrophils # (A) 6.25 X 10*3/uL (1.80-7.70); Platelet Count 243 X 10*3/uL (140-440); RBC 2.94 X 10*6/uL (4.40-5.60); RDW 12.4 % (11.5-14.5); WBC 11.16 X 10*3/uL (4.50-10.00)
[2022-09-06 11:15] LABS: Glucose,Whole Blood 114 mg/dL (70-110)
--- NOTE | 2022-09-06 13:09 | P.PN ---
Subjective Progress Note Date: 09/06/22 patient is 77-year-old gentleman with past medical history significant for hypertension, hyperlipidemia, depression who presented to the hospital for elective right hip total arthroplasty. Patient was being seen outpatient by orthopedic's, patient has been having right-sided hip pain, therapy session were attempted but patient did not notice any improvement. Patient followed up with orthopedics and to schedule patient for right total hip arthroplasty. Postoperatively the medicine team was consulted for medical management 09/05. Patient seen and examined. Family at the bedside. States he still has pain at the surgery site. 09/06. Patient seen and examined . No acute issues overnight. Patient is medically stable for discharge REVIEW OF SYSTEMS: CONSTITUTIONAL: No fever, no malaise,. CARDIOVASCULAR: No chest pain, no palpitations, no syncope. PULMONARY: No shortness of breath, no cough, GASTROINTESTINAL: No diarrhea, no nausea, no vomiting, no abdominal pain. NEUROLOGICAL: No headaches, no weakness, PHYSICAL EXAMINATION: GENERAL: The patient is alert , not in any acute distress. Well developed, well nourished. HEENT: Pupils are round and equally reacting to light. EOMI. No scleral icterus. No conjunctival pallor. Normocephalic, atraumatic. No pharyngeal erythema. No thyromegaly. CARDIOVASCULAR: S1 and S2 present. No murmurs, rubs, or gallops. PULMONARY: Chest is clear to auscultation, no wheezing or crackles. ABDOMEN: Soft, nontender, nondistended, normoactive bowel sounds. No palpable organomegaly. PEG tube seen MUSCULOSKELETAL: No joint swelling or deformity. Right hip surgical incision seen EXTREMITIES: No cyanosis, clubbing, or pedal edema. NEUROLOGICAL: Gross neurological examination did not reveal any focal deficits. SKIN: No rashes. Assessment and plan Severe osteoarthritis of right hip, status post right hip arthroplasty Hypertension Hyperlipidemia History of CVA/TIA Parkinson's disease Obstructive sleep apnea Depression Monitor vital signs Monitor CBC Monitor CMP Continue telemetry monitoring Monitor CBC Monitor CMP Continue pain management per orthopedics Continue DVT prophylaxis per orthopedics Continue aspirin and Plavix Continue tube feeding Patient medically stable for discharge Labs and medication were reviewed.. Continue same treatment. Continue with symptomatic treatment. Resume home medication. Monitor labs and vitals. DVT and GI prophylaxis. Further recommendations as per clinical course of the patient Objective - Vital Signs Vital signs: Vital Signs Temp 98.1 F 09/06/22 06:45 Pulse 69 09/06/22 06:45 Resp 17 09/06/22 06:45 BP 110/67 09/06/22 06:45 Pulse Ox 98 09/06/22 06:45 FiO2 Intake & Output 09/05/22 09/06/22 09/06/22 18:59 06:59 18:59 Output Total 100 Balance -100 Weight 95.5 kg Output: Urine 100 - Labs CBC & Chem 7: 09/06/22 05:37
[2022-09-06 13:21] VITALS: BMI 31.1
== END 2022-09-06 13:44 | DRG 499 ==
LOC: 2ORMAIN 07:58 → EDSTATUS 09:00 → 4SSUR 14:28
PROVIDERS: ADMIT Orthopaedic Surgery; ATTEND Orthopaedic Surgery
PROC: 0QB60ZZ Excision of Right Upper Femur, Open Approach (ICD-10-PCS; principal; 2022-09-03 10:00)
DX: M16.11 Unilateral primary osteoarthritis, right hip (principal); I10 Essential (primary) hypertension; E78.5 Hyperlipidemia, unspecified; F32.A Depression, unspecified; G20 Parkinson's disease; G47.33 Obstructive sleep apnea (adult) (pediatric); Z86.73 Personal history of transient ischemic attack (TIA), and cerebral infarction without residual deficits; Z82.49 Family history of ischemic heart disease and other diseases of the circulatory system; Z96.641 Presence of right artificial hip joint; Z79.899 Other long term (current) drug therapy; Z79.82 Long term (current) use of aspirin; Z79.02 Long term (current) use of antithrombotics/antiplatelets; Z87.440 Personal history of urinary (tract) infections
CPT/HCPCS: 73501; 85025